=== PATIENT | female | born 1960 | race Caucasian/White ===

== ENCOUNTER 2016-12-19 22:25 | Inpatient (IN) | payer MEDICARE, MEDICAID ==
[~2016-12-19] VITALS: Ht 154.9 cm; Wt 97.5 kg
[~2016-12-19 22:25] MED LIST: CLON1 PO; ESCI20TA PO; TRAZ-147 PO
[2016-12-19] MEDS ORDERED: HYDR-309 PO (22:52)
[2016-12-19 22:56] LABS: GLUCOSE,POINT OF CARE 147 MG/DL (70-110)
[2016-12-19 23:10] LABS: BASOPHILS % (AUTO) 0.9 % (0.0-2.0); EOSINOPHILS % (AUTO) 1.3 % (1.0-6.0); HEMOGLOBIN 12.9 g/dL (12.0-16.0); LYMPHOCYTES # (AUTO) 3.7 K/uL (1.0-4.8); LYMPHOCYTES % (AUTO) 38.4 % (22.0-44.0); MEAN CORPUSCULAR HEMOGLOBIN 30.3 pg (26.0-34.0); MEAN CORPUSCULAR HGB CONC 33.1 G/dL (31.0-37.0); MEAN CORPUSCULAR VOLUME 92 fL (80-100); MONOCYTES # (AUTO) 0.4 K/uL (0.1-1.0); MONOCYTES % (AUTO) 4.5 % (2.0-9.0); NEUTROPHILS # (AUTO) 5.3 K/uL (1.8-7.7); NEUTROPHILS % (AUTO) 54.9 % (40.0-70.0); PLATELET COUNT (AUTO) 246 K/uL (150-450); RED BLOOD CELL COUNT(AUTO) 4.26 MIL/uL (4.00-5.20); RED CELL DISTRIBUTION WIDTH 13.8 % (11.5-14.5); WHITE BLOOD COUNT (AUTO) 9.7 K/uL (4.5-11.0)
[2016-12-19 23:23] LABS: ANION GAP 9 mmol/L (8-16); CALCIUM, TOTAL 9.3 mg/dL (8.8-10.5); CARBON DIOXIDE 29 mmol/L (22-29); CHLORIDE 98 mmol/L (98-107); CREATININE 0.85 mg/dL (0.60-1.30); GLOMERULAR FILTR. RATE CALC > 60 mL/min (>60); POTASSIUM 3.6 mmol/L (3.5-5.1); SODIUM SERUM 136 mmol/L (136-145); UREA NITROGEN, BLOOD 14 mg/dL (7-18)
[2016-12-19 23:29] LABS: ALANINE AMINOTRANSFERASE 25 U/L (12-78); ALBUMIN 3.8 g/dL (3.4-5.0); ASPARTATE AMINOTRANSFERASE 20 U/L (15-37); BILIRUBIN,TOTAL 0.5 mg/dL (0.1-1.0); TOTAL PROTEIN, SERUM 7.7 g/dL (6.4-8.2)
[2016-12-20] MEDS ORDERED: ESCITALOPRAM OXALATE 20 MG TABLET PO ONE (00:15)
[2016-12-20] MEDS ORDERED: TraZODone HCL 50 MG TABLET PO ONE (00:15)
[2016-12-20] MEDS ORDERED: OLANZapine 5 MG RAPDIS TABLET PO PRN (00:15)
[2016-12-20] MEDS ORDERED: ZOLPIDEM TARTRATE 10 MG TABLET PO PRN (00:15)
[2016-12-20 01:00] VITALS: BP 114/64
[2016-12-20] MEDS ORDERED: PNEUMOCOCCAL VACCINE POLYVALENT 0.5 ML VIAL [PPSV23] IM ONE (01:15)
[2016-12-20] MEDS ORDERED: INFLUENZA VIRUS VACCINE QVS 2016-17 (3YR+)/PF 60 MCG/0.5 ML SYRINGE IM ONE (01:15)
[2016-12-20] MEDS: LORazepam 2 MG TABLET PO PRN ×2 (01:22→15:19)
[2016-12-20 08:00] VITALS: BP 117/71
[2016-12-20] MEDS ORDERED: PROMETHAZINE HCL 25 MG TABLET PO PRN (10:00)
[2016-12-20] MEDS ORDERED: LOPERAMIDE HCL 2 MG CAPSULE PO PRN (10:00)
[2016-12-20] MEDS ORDERED: HydrOXYzine PAMOATE 50 MG CAPSULE PO PRN ×2 (10:00→18:00)
[2016-12-20] MEDS ORDERED: MAG HYDROX/AL HYDROX/SIMETH ES 30 ML SUSPENSION UDCUP PO PRN ×2 (10:00→18:00)
[2016-12-20] MEDS ORDERED: MAGNESIUM HYDROXIDE SUSPENSION 30 ML UDCUP PO PRN (10:00)
[2016-12-20] MEDS ORDERED: GuaiFENesin/D-METHORPHAN [SUGAR-FREE] 200-20MG/10 ML SYRUP UDCUP PO PRN (10:00)
[2016-12-20] MEDS ORDERED: TUBERCULIN, PURIFIED PROTEIN DERIVATIVE 5 TU/0.1 ML SYG ID ONE (10:00)
[2016-12-20] MEDS: ACETAMINOPHEN 325 MG TABLET PO PRN (15:19)
[2016-12-20 16:35] VITALS: BP 119/69
[2016-12-20] MEDS: THIAMINE HCL 100 MG TABLET PO SCH (16:58)
[2016-12-20] MEDS ORDERED: PROMETHAZINE HCL 25 MG/ML VIAL IM PRN (18:00)
[2016-12-20] MEDS ORDERED: CloNIDine HCL 0.1 MG TABLET PO PRN (18:00)
[2016-12-20] MEDS: ClonazePAM 0.5 MG TABLET PO SCH (20:39)
[2016-12-20] MEDS: TraZODone HCL 50 MG TABLET PO SCH (20:39)
[2016-12-20] MEDS ORDERED: TraZODone HCL 100 MG TABLET PO SCH (21:00)
[2016-12-20 22:00] VITALS: BP 121/68
[2016-12-20 22:27] VITALS: BP 121/74
[2016-12-20] MEDS: CloNIDine HCL 0.1 MG TABLET PO SCH (22:29)
[2016-12-20 23:00] VITALS: BP 112/62
[2016-12-21] VITALS (11 sets, daily range): BP systolic 105–131; BP diastolic 59–80
[2016-12-21] MEDS: ACETAMINOPHEN 325 MG TABLET PO PRN (05:58)
[2016-12-21] MEDS: CloNIDine HCL 0.1 MG TABLET PO SCH ×4 (06:09→22:20)
[2016-12-21] MEDS: FOLIC ACID 1 MG TABLET PO SCH (08:37)
[2016-12-21] MEDS: THIAMINE HCL 100 MG TABLET PO SCH ×2 (08:38→16:34)
[2016-12-21] MEDS: MULTIVITAMINS WITH MINERALS, THERAPEUTIC TABLET PO SCH (08:38)
[2016-12-21] MEDS ORDERED: ESCITALOPRAM OXALATE 20 MG TABLET PO SCH ×2 (09:00)
[2016-12-21] MEDS: IBUPROFEN 600 MG TABLET PO PRN (12:23)
[2016-12-21] MEDS: GABAPENTIN 300 MG CAPSULE PO SCH ×3 (13:35→20:47)
[2016-12-21] MEDS: ClonazePAM 0.5 MG TABLET PO SCH (20:47)
[2016-12-21] MEDS: TraZODone HCL 50 MG TABLET PO SCH (20:47)
[2016-12-22 06:00] VITALS: BP 119/74
[2016-12-22] MEDS: CloNIDine HCL 0.1 MG TABLET PO SCH ×4 (06:10→21:39)
[2016-12-22 06:11] VITALS: BP 119/74
[2016-12-22 06:31] LABS: HEMOGLOBIN A1C 6.2 % (4.5-6.2)
[2016-12-22 06:32] LABS: CHOL/HDL RATIO 3.4 (3.9-5.7)
[2016-12-22] MEDS: MULTIVITAMINS WITH MINERALS, THERAPEUTIC TABLET PO SCH (08:14)
[2016-12-22] MEDS: GABAPENTIN 300 MG CAPSULE PO SCH ×4 (08:14→20:06)
[2016-12-22] MEDS: FOLIC ACID 1 MG TABLET PO SCH (08:15)
[2016-12-22] MEDS: THIAMINE HCL 100 MG TABLET PO SCH ×2 (08:15→16:47)
[2016-12-22] MEDS ORDERED: DULoxetine HCL 20 MG CAPSULE PO SCH (09:00)
[2016-12-22 09:10] VITALS: BP 110/60
[2016-12-22 09:11] VITALS: BP 110/60
[2016-12-22] MEDS: IBUPROFEN 600 MG TABLET PO PRN (12:36)
[2016-12-22] MEDS ORDERED: DOCUSATE SODIUM 100 MG CAPSULE PO ONE (16:45)
[2016-12-22 17:15] VITALS: BP 109/75
[2016-12-22] MEDS: TraZODone HCL 50 MG TABLET PO SCH (20:07)
[2016-12-22] MEDS: ClonazePAM 0.5 MG TABLET PO SCH (20:07)
[2016-12-22 21:20] VITALS: BP 109/75
[2016-12-23 05:52] VITALS: BP 110/74
[2016-12-23 05:53] VITALS: BP 110/74
[2016-12-23] MEDS: CloNIDine HCL 0.1 MG TABLET PO SCH ×4 (05:59→21:00)
[2016-12-23] MEDS: LORazepam 2 MG TABLET PO PRN ×2 (05:59→12:40)
[2016-12-23 08:07] VITALS: BP 101/65
[2016-12-23] MEDS: FOLIC ACID 1 MG TABLET PO SCH (08:51)
[2016-12-23] MEDS: DOCUSATE SODIUM 100 MG CAPSULE PO SCH (08:51)
[2016-12-23] MEDS: THIAMINE HCL 100 MG TABLET PO SCH ×2 (08:51→16:21)
[2016-12-23] MEDS: MULTIVITAMINS WITH MINERALS, THERAPEUTIC TABLET PO SCH (08:52)
[2016-12-23] MEDS: GABAPENTIN 300 MG CAPSULE PO SCH ×4 (08:52→20:28)
[2016-12-23] MEDS: DULoxetine HCL 30 MG CAPSULE PO SCH (09:00)
[2016-12-23 12:35] VITALS: BP 112/73
[2016-12-23] MEDS: IBUPROFEN 600 MG TABLET PO PRN (12:40)
[2016-12-23 16:00] VITALS: BP 108/64
[2016-12-23] MEDS: ClonazePAM 0.5 MG TABLET PO SCH (20:28)
[2016-12-23] MEDS: TraZODone HCL 50 MG TABLET PO SCH (20:28)
[2016-12-24 00:29] VITALS: BP 114/77
[2016-12-24 00:31] VITALS: BP 144/77
[2016-12-24] MEDS: CloNIDine HCL 0.1 MG TABLET PO SCH ×4 (06:00→21:06)
[2016-12-24] MEDS: MULTIVITAMINS WITH MINERALS, THERAPEUTIC TABLET PO SCH (08:31)
[2016-12-24] MEDS: THIAMINE HCL 100 MG TABLET PO SCH ×2 (08:31→16:09)
[2016-12-24] MEDS: FOLIC ACID 1 MG TABLET PO SCH (08:31)
[2016-12-24] MEDS: DOCUSATE SODIUM 100 MG CAPSULE PO SCH (08:31)
[2016-12-24 08:35] VITALS: BP 122/66
[2016-12-24] MEDS: LORazepam 2 MG TABLET PO PRN ×2 (08:35→12:58)
[2016-12-24] MEDS: GABAPENTIN 300 MG CAPSULE PO SCH ×4 (08:35→20:46)
[2016-12-24] MEDS: IBUPROFEN 600 MG TABLET PO PRN (08:35)
[2016-12-24] MEDS: DULoxetine HCL 30 MG CAPSULE PO SCH (08:38)
[2016-12-24 12:58] VITALS: BP 130/83
[2016-12-24] MEDS: ACETAMINOPHEN 325 MG TABLET PO PRN (12:58)
[2016-12-24 16:40] VITALS: BP 148/90
[2016-12-24] MEDS: ClonazePAM 0.5 MG TABLET PO SCH (20:46)
[2016-12-24] MEDS: TraZODone HCL 50 MG TABLET PO SCH (20:46)
[2016-12-25 00:59] VITALS: BP 147/86
[2016-12-25] MEDS: CloNIDine HCL 0.1 MG TABLET PO SCH ×4 (06:00→21:06)
[2016-12-25] MEDS: GABAPENTIN 300 MG CAPSULE PO SCH ×4 (08:17→20:24)
[2016-12-25] MEDS: DOCUSATE SODIUM 100 MG CAPSULE PO SCH (08:17)
[2016-12-25] MEDS: MULTIVITAMINS WITH MINERALS, THERAPEUTIC TABLET PO SCH (08:18)
[2016-12-25] MEDS: FOLIC ACID 1 MG TABLET PO SCH (08:18)
[2016-12-25] MEDS: THIAMINE HCL 100 MG TABLET PO SCH ×2 (08:18→16:11)
[2016-12-25 08:20] VITALS: BP 107/67
[2016-12-25] MEDS: LORazepam 2 MG TABLET PO PRN ×2 (08:20→12:21)
[2016-12-25] MEDS: ACETAMINOPHEN 325 MG TABLET PO PRN (08:20)
[2016-12-25] MEDS: DULoxetine HCL 30 MG CAPSULE PO SCH (08:25)
[2016-12-25 12:20] VITALS: BP 117/62
[2016-12-25] MEDS: IBUPROFEN 600 MG TABLET PO PRN (12:21)
[2016-12-25 17:00] VITALS: BP 149/91
[2016-12-25] MEDS: TraZODone HCL 50 MG TABLET PO SCH (20:25)
[2016-12-25] MEDS: ClonazePAM 0.5 MG TABLET PO SCH (20:25)
[2016-12-26] MEDS: LORazepam 2 MG TABLET PO PRN (04:49)
[2016-12-26 05:42] VITALS: BP 145/76
[2016-12-26] MEDS: CloNIDine HCL 0.1 MG TABLET PO SCH (06:09)
[2016-12-26 08:05] VITALS: BP 109/73
[2016-12-26] MEDS: DOCUSATE SODIUM 100 MG CAPSULE PO SCH (09:00)
[2016-12-26] MEDS: DULoxetine HCL 30 MG CAPSULE PO SCH (09:00)
[2016-12-26] MEDS: MULTIVITAMINS WITH MINERALS, THERAPEUTIC TABLET PO SCH (09:24)
[2016-12-26] MEDS: GABAPENTIN 300 MG CAPSULE PO SCH (09:24)
[2016-12-26] MEDS: THIAMINE HCL 100 MG TABLET PO SCH (09:25)
[2016-12-26] MEDS: FOLIC ACID 1 MG TABLET PO SCH (09:25)
[2016-12-26] MEDS ORDERED: DULO30CA2 PO (09:39)
[2016-12-26] MEDS ORDERED: GABA-531 PO (09:41)
[2016-12-26] MEDS ORDERED: TRAZ-144 PO (09:42)
[2016-12-28] MEDS ORDERED: ESCI10TA PO (11:33)
== END 2016-12-26 11:30 | disposition home or self-care (01) | DRG 885 ==
LOC: EMS 22:27 → 3EX 12-20 00:10
PROVIDERS: ADMIT Psychiatry & Neurology Psychiatry; ATTEND Psychiatry & Neurology Psychiatry
DX: F33.2 Major depressive disorder, recurrent severe without psychotic features (principal); R45.851 Suicidal ideations; Z68.41 Body mass index [BMI] 40.0-44.9, adult; F11.23 Opioid dependence with withdrawal; I10 Essential (primary) hypertension; J44.9 Chronic obstructive pulmonary disease, unspecified; E78.5 Hyperlipidemia, unspecified; M19.90 Unspecified osteoarthritis, unspecified site; E66.9 Obesity, unspecified; K74.60 Unspecified cirrhosis of liver; G47.33 Obstructive sleep apnea (adult) (pediatric); B19.20 Unspecified viral hepatitis C without hepatic coma; G89.29 Other chronic pain; M54.9 Dorsalgia, unspecified; E73.9 Lactose intolerance, unspecified; Z28.21 Immunization not carried out because of patient refusal; Z79.899 Other long term (current) drug therapy; Z79.891 Long term (current) use of opiate analgesic; Z98.890 Other specified postprocedural states; Z91.19 Patient's noncompliance with other medical treatment and regimen; T40.2X5A Adverse effect of other opioids, initial encounter; Y93.89 Activity, other specified; Y92.89 Other specified places as the place of occurrence of the external cause; Y99.8 Other external cause status
CPT/HCPCS: 82962; 83036; 99285; G0480

== ENCOUNTER 2017-09-19 19:45 | Inpatient (IN) | payer MEDICARE, MEDICAID ==
[~2017-09-19] VITALS: Ht 154.9 cm; Wt 93.3 kg
[~2017-09-19 19:45] MED LIST changes: +ESCI10TA PO; -ESCI20TA PO; +GABA-531 PO; +TRAZ-144 PO; -TRAZ-147 PO
[2017-09-19] MEDS ORDERED: HYDR-3705 PO (19:55)
[2017-09-19 23:15] LABS: BASOPHILS % (AUTO) 0.7 % (0.0-2.0); EOSINOPHILS % (AUTO) 1.8 % (1.0-6.0); HEMATOCRIT 38.8 % (36-46); HEMOGLOBIN 13.3 g/dL (12.0-16.0); LYMPHOCYTES # (AUTO) 2.8 K/uL (1.0-4.8); LYMPHOCYTES % (AUTO) 35.3 % (22.0-44.0); MEAN CORPUSCULAR HEMOGLOBIN 30.9 pg (26.0-34.0); MEAN CORPUSCULAR HGB CONC 34.3 G/dL (31.0-37.0); MEAN CORPUSCULAR VOLUME 90 fL (80-100); MONOCYTES # (AUTO) 0.6 K/uL (0.1-1.0); MONOCYTES % (AUTO) 7.6 % (2.0-9.0); NEUTROPHILS # (AUTO) 4.4 K/uL (1.8-7.7); NEUTROPHILS % (AUTO) 54.6 % (40.0-70.0); PLATELET COUNT (AUTO) 243 K/uL (150-450); RED CELL DISTRIBUTION WIDTH 12.9 % (11.5-14.5)
[2017-09-19 23:19] LABS: ANION GAP 4 mmol/L (8-16); CALCIUM, TOTAL 8.9 mg/dL (8.8-10.5); CARBON DIOXIDE 29 mmol/L (22-29); CHLORIDE 101 mmol/L (98-107); CREATININE 0.88 mg/dL (0.60-1.30); GLOMERULAR FILTR. RATE CALC > 60 mL/min (>60); POTASSIUM 4.2 mmol/L (3.5-5.1); SODIUM SERUM 134 mmol/L (136-145); UREA NITROGEN, BLOOD 12 mg/dL (7-18)
[2017-09-19 23:25] LABS: ALANINE AMINOTRANSFERASE 26 U/L (12-78); ALBUMIN 3.7 g/dL (3.4-5.0); ASPARTATE AMINOTRANSFERASE 17 U/L (15-37); BILIRUBIN,TOTAL 0.6 mg/dL (0.1-1.0); TOTAL PROTEIN, SERUM 7.5 g/dL (6.4-8.2)
[2017-09-20] MEDS ORDERED: KETOROLAC TROMETHAMINE 60 MG/2 ML VIAL IM ONE (00:30)
[2017-09-20] MEDS ORDERED: LORazepam 1 MG TABLET PO ONE (00:30)
[2017-09-20] MEDS ORDERED: PROMETHAZINE HCL 25 MG/ML VIAL IM ONE (00:30)
[2017-09-20] MEDS: ZOLPIDEM TARTRATE 10 MG TABLET PO PRN (01:48)
[2017-09-20 03:08] VITALS: BP 125/76
[2017-09-20 03:31] VITALS: BP 125/76
[2017-09-20 07:21] LABS: HEMOGLOBIN A1C 6.2 % (4.5-6.2)
[2017-09-20 07:40] LABS: CHOL/HDL RATIO 2.5 (3.9-5.7)
[2017-09-20] MEDS ORDERED: ALBUTEROL SULFATE HFA 90 MCG/PUFF 8 GM INHALER IH PRN (07:45)
[2017-09-20] MEDS ORDERED: MAG HYDROX/AL HYDROX/SIMETH ES 30 ML SUSPENSION UDCUP PO PRN (07:45)
[2017-09-20] MEDS ORDERED: BENZOCAINE/MENTHOL LOZENGE MM PRN (07:45)
[2017-09-20] MEDS ORDERED: MAGNESIUM HYDROXIDE SUSPENSION 30 ML UDCUP PO PRN (07:45)
[2017-09-20] MEDS ORDERED: ONDANSETRON HCL 4 MG TABLET PO PRN (07:45)
[2017-09-20] MEDS ORDERED: PETROLATUM,WHITE 71 GM JELLY TP PRN (07:45)
[2017-09-20] MEDS ORDERED: ACETAMINOPHEN 325 MG TABLET PO PRN (07:45)
[2017-09-20] MEDS ORDERED: CloNIDine HCL 0.1 MG TABLET PO PRN (07:45)
[2017-09-20] MEDS ORDERED: BACITRACIN 28.4 GM OINTMENT TP PRN (07:45)
[2017-09-20] MEDS ORDERED: LOPERAMIDE HCL 2 MG CAPSULE PO PRN (07:45)
[2017-09-20 08:00] VITALS: BP 102/60
[2017-09-20] MEDS ORDERED: BENZOCAINE/MENTHOL LOZENGE [8 LOZENGES/PACKET] MM PRN (08:30)
[2017-09-20] MEDS: OMEPRAZOLE 20 MG CAPSULE PO SCH (09:33)
[2017-09-20] MEDS: DOCUSATE SODIUM 100 MG CAPSULE PO SCH (09:33)
[2017-09-20] MEDS: ESCITALOPRAM OXALATE 10 MG TABLET PO SCH (09:33)
[2017-09-20] MEDS: GABAPENTIN 400 MG CAPSULE PO SCH ×3 (09:33→21:01)
[2017-09-20] MEDS: OMEGA-3/DHA/EPA/FISH OIL 500 MG CAPSULE PO SCH (09:34)
[2017-09-20] MEDS: ClonazePAM 0.5 MG TABLET PO SCH ×2 (11:15→16:25)
[2017-09-20 17:13] VITALS: BP 135/62
[2017-09-20] MEDS: TraZODone HCL 100 MG TABLET PO SCH (21:01)
[2017-09-21] MEDS: ClonazePAM 0.5 MG TABLET PO SCH ×2 (09:35→17:22)
[2017-09-21] MEDS: OMEGA-3/DHA/EPA/FISH OIL 500 MG CAPSULE PO SCH (09:35)
[2017-09-21] MEDS: DOCUSATE SODIUM 100 MG CAPSULE PO SCH (09:35)
[2017-09-21] MEDS: OMEPRAZOLE 20 MG CAPSULE PO SCH (09:36)
[2017-09-21] MEDS: GABAPENTIN 400 MG CAPSULE PO SCH ×3 (09:36→21:46)
[2017-09-21] MEDS: ESCITALOPRAM OXALATE 10 MG TABLET PO SCH (09:37)
[2017-09-21 10:09] VITALS: BP 122/81
[2017-09-21] MEDS: IBUPROFEN 600 MG TABLET PO PRN ×2 (10:09→17:22)
[2017-09-21 11:15] VITALS: BP 126/79
[2017-09-21 17:20] VITALS: BP 101/60
[2017-09-21 18:20] VITALS: BP 112/70
[2017-09-21] MEDS ORDERED: IBUPROFEN 600 MG TABLET PO PRN (21:45)
[2017-09-21] MEDS: TraZODone HCL 100 MG TABLET PO SCH (21:46)
[2017-09-21] MEDS: ZOLPIDEM TARTRATE 10 MG TABLET PO PRN (22:02)
[2017-09-22] MEDS: DOCUSATE SODIUM 100 MG CAPSULE PO SCH (08:33)
[2017-09-22] MEDS: OMEGA-3/DHA/EPA/FISH OIL 500 MG CAPSULE PO SCH (08:33)
[2017-09-22] MEDS: ClonazePAM 0.5 MG TABLET PO SCH ×3 (08:33→16:50)
[2017-09-22] MEDS: ESCITALOPRAM OXALATE 10 MG TABLET PO SCH (08:34)
[2017-09-22] MEDS: OMEPRAZOLE 20 MG CAPSULE PO SCH (08:34)
[2017-09-22] MEDS: GABAPENTIN 400 MG CAPSULE PO SCH ×3 (08:34→21:33)
[2017-09-22 11:00] VITALS: BP 138/83
[2017-09-22] MEDS: IBUPROFEN 600 MG TABLET PO PRN (11:13)
[2017-09-22 12:15] VITALS: BP 133/83
[2017-09-22] MEDS: HydrOXYzine PAMOATE 50 MG CAPSULE PO PRN (13:05)
[2017-09-22] MEDS ORDERED: ClonazePAM 0.5 MG TABLET PO SCH (21:00)
[2017-09-22] MEDS: TraZODone HCL 100 MG TABLET PO SCH (21:33)
[2017-09-22 22:05] VITALS: BP 136/81
[2017-09-23] MEDS: IBUPROFEN 600 MG TABLET PO PRN ×2 (06:45→11:30)
[2017-09-23 06:46] VITALS: BP 158/88
[2017-09-23 07:45] VITALS: BP 117/84
[2017-09-23 08:22] VITALS: BP 117/84
[2017-09-23] MEDS: ESCITALOPRAM OXALATE 10 MG TABLET PO SCH (08:55)
[2017-09-23] MEDS: DOCUSATE SODIUM 100 MG CAPSULE PO SCH (08:55)
[2017-09-23] MEDS: GABAPENTIN 400 MG CAPSULE PO SCH ×3 (08:55→20:17)
[2017-09-23] MEDS: ClonazePAM 0.5 MG TABLET PO SCH ×2 (08:55→20:17)
[2017-09-23] MEDS: OMEGA-3/DHA/EPA/FISH OIL 500 MG CAPSULE PO SCH (08:55)
[2017-09-23] MEDS: OMEPRAZOLE 20 MG CAPSULE PO SCH (08:55)
[2017-09-23] MEDS: HydrOXYzine PAMOATE 50 MG CAPSULE PO PRN (11:29)
[2017-09-23 11:30] VITALS: BP 120/80
[2017-09-23 12:30] VITALS: BP 113/71
[2017-09-23 16:59] VITALS: BP 135/85
[2017-09-23] MEDS ORDERED: GABA-529 PO (18:43)
[2017-09-23] MEDS ORDERED: DiphenhydrAMINE HCL 25 MG CAPSULE ONE (19:01)
[2017-09-23] MEDS: DiphenhydrAMINE HCL 25 MG CAPSULE PO SCH (20:16)
[2017-09-23] MEDS: TraZODone HCL 100 MG TABLET PO SCH (20:16)
[2017-09-23] MEDS: ZOLPIDEM TARTRATE 10 MG TABLET PO PRN (21:02)
[2017-09-24 08:15] VITALS: BP 101/75
[2017-09-24] MEDS: OMEGA-3/DHA/EPA/FISH OIL 500 MG CAPSULE PO SCH (08:31)
[2017-09-24] MEDS: GABAPENTIN 400 MG CAPSULE PO SCH ×3 (08:31→20:15)
[2017-09-24] MEDS: DOCUSATE SODIUM 100 MG CAPSULE PO SCH (08:31)
[2017-09-24] MEDS: OMEPRAZOLE 20 MG CAPSULE PO SCH (08:31)
[2017-09-24] MEDS: ESCITALOPRAM OXALATE 10 MG TABLET PO SCH (08:32)
[2017-09-24] MEDS: ClonazePAM 0.5 MG TABLET PO SCH (08:32)
[2017-09-24 13:26] VITALS: BP 111/69
[2017-09-24] MEDS: IBUPROFEN 600 MG TABLET PO PRN (13:26)
[2017-09-24] MEDS: HydrOXYzine PAMOATE 50 MG CAPSULE PO PRN (15:58)
[2017-09-24 17:23] VITALS: BP 113/66
[2017-09-24] MEDS: DiphenhydrAMINE HCL 25 MG CAPSULE PO SCH (20:14)
[2017-09-24] MEDS: TraZODone HCL 100 MG TABLET PO SCH (20:15)
[2017-09-24] MEDS: ZOLPIDEM TARTRATE 10 MG TABLET PO PRN (21:40)
[2017-09-25] MEDS ORDERED: ESCI10TA PO (00:18)
[2017-09-25] MEDS ORDERED: HYD25 PO (00:18)
[2017-09-25] MEDS ORDERED: GABA-533 PO (00:19)
[2017-09-25] MEDS ORDERED: TRAZ-147 PO (00:19)
[2017-09-25] MEDS: DOCUSATE SODIUM 100 MG CAPSULE PO SCH (08:28)
[2017-09-25] MEDS: OMEGA-3/DHA/EPA/FISH OIL 500 MG CAPSULE PO SCH (08:28)
[2017-09-25] MEDS: ESCITALOPRAM OXALATE 10 MG TABLET PO SCH (08:28)
[2017-09-25] MEDS: OMEPRAZOLE 20 MG CAPSULE PO SCH (08:28)
[2017-09-25] MEDS: GABAPENTIN 400 MG CAPSULE PO SCH (08:28)
[2017-09-25 12:48] VITALS: BP 122/90
== END 2017-09-25 09:00 | disposition home or self-care (01) | DRG 885 ==
LOC: EMS 19:49 → 3EX 09-20 01:21
PROVIDERS: ADMIT Psychiatry & Neurology Psychiatry; ATTEND Psychiatry & Neurology Psychiatry
DX: F33.2 Major depressive disorder, recurrent severe without psychotic features (principal); E87.1 Hypo-osmolality and hyponatremia; R45.851 Suicidal ideations; K74.60 Unspecified cirrhosis of liver; E66.9 Obesity, unspecified; E78.5 Hyperlipidemia, unspecified; F41.1 Generalized anxiety disorder; G47.00 Insomnia, unspecified; G47.33 Obstructive sleep apnea (adult) (pediatric); G89.29 Other chronic pain; I10 Essential (primary) hypertension; J44.9 Chronic obstructive pulmonary disease, unspecified; K59.00 Constipation, unspecified; M19.90 Unspecified osteoarthritis, unspecified site; F17.200 Nicotine dependence, unspecified, uncomplicated; R51 Headache; M54.9 Dorsalgia, unspecified; Z59.0 Homelessness; Z79.899 Other long term (current) drug therapy; Z91.19 Patient's noncompliance with other medical treatment and regimen; Z71.6 Tobacco abuse counseling; Z88.8 Allergy status to other drugs, medicaments and biological substances; Z68.38 Body mass index [BMI] 38.0-38.9, adult
CPT/HCPCS: 83036; 84295; 84436; 96372; 99285; G0480; J1885; J2550

== ENCOUNTER 2018-06-22 18:37 | Inpatient (IN) | payer MEDICARE, MEDICAID ==
[~2018-06-22] VITALS: Ht 152.4 cm; Wt 91.2 kg
[~2018-06-22 18:37] MED LIST changes: -CLON1 PO; -GABA-531 PO; +GABA-533 PO; +HYD25 PO; -TRAZ-144 PO; +TRAZ-220 PO
[2018-06-22] MEDS ORDERED: CLON.5 PO (18:48)
[2018-06-22 20:55] LABS: BASOPHILS % (AUTO) 0.8 % (0.0-2.0); EOSINOPHILS % (AUTO) 1.7 % (1.0-6.0); HEMATOCRIT 40.2 % (36-46); HEMOGLOBIN 13.6 g/dL (12.0-16.0); LYMPHOCYTES # (AUTO) 3.1 K/uL (1.0-4.8); LYMPHOCYTES % (AUTO) 38.4 % (22.0-44.0); MEAN CORPUSCULAR HEMOGLOBIN 30.4 pg (26.0-34.0); MEAN CORPUSCULAR HGB CONC 33.8 G/dL (31.0-37.0); MEAN CORPUSCULAR VOLUME 90 fL (80-100); MONOCYTES # (AUTO) 0.4 K/uL (0.1-1.0); NEUTROPHILS # (AUTO) 4.3 K/uL (1.8-7.7); NEUTROPHILS % (AUTO) 54.1 % (40.0-70.0); PLATELET COUNT (AUTO) 283 K/uL (150-450); RED BLOOD CELL COUNT(AUTO) 4.46 MIL/uL (4.00-5.20); RED CELL DISTRIBUTION WIDTH 13.5 % (11.5-14.5)
[2018-06-22 21:11] LABS: ANION GAP 12 mmol/L (8-16); CALCIUM, TOTAL 8.8 mg/dL (8.8-10.5); CARBON DIOXIDE 25 mmol/L (22-29); CHLORIDE 102 mmol/L (98-107); CREATININE 0.84 mg/dL (0.60-1.30); GLOMERULAR FILTR. RATE CALC > 60 mL/min (>60); GLUCOSE,RANDOM 192 mg/dL (70-110); POTASSIUM 3.3 mmol/L (3.5-5.1); SODIUM SERUM 139 mmol/L (136-145); UREA NITROGEN, BLOOD 17 mg/dL (7-18)
[2018-06-22 21:17] LABS: ALANINE AMINOTRANSFERASE 25 U/L (12-78); ALBUMIN 3.8 g/dL (3.4-5.0); ALKALINE PHOSPHATASE 78 U/L (46-116); ASPARTATE AMINOTRANSFERASE 24 U/L (15-37); BILIRUBIN,TOTAL 0.9 mg/dL (0.1-1.0); TOTAL PROTEIN, SERUM 7.7 g/dL (6.4-8.2)
[2018-06-23] MEDS ORDERED: POTASSIUM CHLORIDE 10 MEQ ER TABLET PO ONE (00:15)
[2018-06-23] MEDS ORDERED: HALOPERIDOL 5 MG TABLET PO PRN (01:30)
[2018-06-23] MEDS ORDERED: LORazepam 2 MG TABLET PO PRN (01:30)
[2018-06-23] MEDS: ZOLPIDEM TARTRATE 10 MG TABLET PO PRN ×2 (02:06→02:29)
[2018-06-23 03:13] VITALS: BP 148/77
[2018-06-23 05:39] LABS: GLUCOMETER DEV NAME(LOC) 3EI C; GLUCOSE,POINT OF CARE 126 MG/DL (70-110)
[2018-06-23 08:30] VITALS: BP 122/54
[2018-06-23] MEDS ORDERED: LOPERAMIDE HCL 2 MG CAPSULE PO PRN (10:30)
[2018-06-23] MEDS ORDERED: PROMETHAZINE HCL 25 MG TABLET PO PRN (10:30)
[2018-06-23] MEDS ORDERED: MAG HYDROX/AL HYDROX/SIMETH ES 30 ML SUSPENSION UDCUP PO PRN (10:30)
[2018-06-23] MEDS ORDERED: MAGNESIUM HYDROXIDE SUSPENSION 30 ML UDCUP PO PRN (10:30)
[2018-06-23] MEDS ORDERED: ESCITALOPRAM OXALATE 10 MG TABLET PO SCH (14:00)
[2018-06-23] MEDS: ClonazePAM 0.5 MG TABLET PO SCH (16:55)
[2018-06-23] MEDS: GABAPENTIN 400 MG CAPSULE PO SCH (16:55)
[2018-06-23] MEDS ORDERED: GABAPENTIN 400 MG CAPSULE PO SCH (17:00)
[2018-06-23] MEDS: DOCUSATE SODIUM 250 MG CAPSULE PO SCH (17:03)
[2018-06-23 18:57] VITALS: BP 116/70
[2018-06-23 19:15] LABS: AMPHET/METH SCREEN,URINE NEGATIVE (NEGATIVE); BARBITURATE SCREEN, URINE NEGATIVE (NEGATIVE); BENZODIAZEPINES SCREEN,URINE NEGATIVE (NEGATIVE); CANNABINOID SCREEN,URINE NEGATIVE (NEGATIVE); COCAINE SCREEN,URINE NEGATIVE (NEGATIVE); METHADONE SCREEN, URINE NEGATIVE (NEGATIVE); OPIATE SCREEN,URINE NEGATIVE (NEGATIVE); PHENCYCLIDINE SCREEN,URINE NEGATIVE (NEGATIVE)
[2018-06-23 19:45] LABS: APPEARANCE,URINE CLEAR (CLEAR); BILIRUBIN,URINE NEGATIVE (NEGATIVE); GLUCOSE, URINE (UA) NEGATIVE (NEGATIVE); KETONES,URINE NEGATIVE (NEGATIVE); LEUKOCYTE ESTERASE ,URINE NEGATIVE (NEGATIVE); NITRATE,URINE NEGATIVE (NEGATIVE); OCCULT BLOOD,URINE TRACE (NEGATIVE); PROTEIN,URINE NEGATIVE (NEGATIVE)
[2018-06-23 20:27] LABS: BACTERIA,URINE Few /HPF (None Seen); RBC,URINE 0-2 /HPF (0-2); SQUAMOUS EPITHELIAL CELL,UR Few /LPF (None Seen); WBC,URINE 0-2 /HPF (0-5)
[2018-06-23] MEDS: TraZODone HCL 100 MG TABLET PO SCH (20:32)
[2018-06-24 08:30] LABS: CHOL/HDL RATIO 3.8 (3.9-5.7)
[2018-06-24] MEDS: ACETAMINOPHEN 325 MG TABLET PO PRN (08:37)
[2018-06-24] MEDS: ESCITALOPRAM OXALATE 10 MG TABLET PO SCH (08:37)
[2018-06-24 08:38] VITALS: BP 111/65
[2018-06-24] MEDS: ClonazePAM 0.5 MG TABLET PO SCH ×2 (08:38→16:58)
[2018-06-24] MEDS: DOCUSATE SODIUM 250 MG CAPSULE PO SCH ×2 (08:38→16:59)
[2018-06-24] MEDS: GABAPENTIN 400 MG CAPSULE PO SCH ×2 (08:39→16:59)
[2018-06-24] MEDS: IBUPROFEN 600 MG TABLET PO PRN (12:43)
[2018-06-24 16:44] VITALS: BP 121/81
[2018-06-24] MEDS: TraZODone HCL 100 MG TABLET PO SCH (20:27)
[2018-06-25 08:30] VITALS: BP 120/73
[2018-06-25] MEDS: DOCUSATE SODIUM 250 MG CAPSULE PO SCH ×2 (08:31→16:12)
[2018-06-25] MEDS: ESCITALOPRAM OXALATE 10 MG TABLET PO SCH (08:31)
[2018-06-25] MEDS: ClonazePAM 0.5 MG TABLET PO SCH ×2 (08:31→16:12)
[2018-06-25] MEDS: GABAPENTIN 400 MG CAPSULE PO SCH ×2 (08:31→16:12)
[2018-06-25] MEDS: ACETAMINOPHEN 325 MG TABLET PO PRN (08:37)
[2018-06-25] MEDS: OMEGA-3/DHA/EPA/FISH OIL 1,000 MG CAPSULE PO SCH (09:23)
[2018-06-25 09:40] VITALS: BP 116/76
[2018-06-25] MEDS: IBUPROFEN 600 MG TABLET PO PRN (16:18)
[2018-06-25 16:19] VITALS: BP 103/69
[2018-06-25 17:19] VITALS: BP 113/75
[2018-06-25] MEDS: TraZODone HCL 100 MG TABLET PO SCH (20:30)
[2018-06-26 08:48] VITALS: BP 111/76
[2018-06-26] MEDS: DOCUSATE SODIUM 250 MG CAPSULE PO SCH ×2 (09:16→16:42)
[2018-06-26] MEDS: GABAPENTIN 400 MG CAPSULE PO SCH ×2 (09:16→16:42)
[2018-06-26] MEDS: ESCITALOPRAM OXALATE 10 MG TABLET PO SCH (09:16)
[2018-06-26] MEDS: OMEGA-3/DHA/EPA/FISH OIL 1,000 MG CAPSULE PO SCH (09:17)
[2018-06-26 14:12] VITALS: BP 121/76
[2018-06-26] MEDS: IBUPROFEN 600 MG TABLET PO PRN ×2 (14:12→19:54)
[2018-06-26] MEDS ORDERED: ClonazePAM 0.5 MG TABLET PO SCH (15:00)
[2018-06-26] MEDS ORDERED: BENZOCAINE/MENTHOL LOZENGE PO PRN (18:30)
[2018-06-26 19:54] VITALS: BP 104/73
[2018-06-26] MEDS: TraZODone HCL 100 MG TABLET PO SCH (20:28)
[2018-06-26] MEDS: ClonazePAM 0.5 MG TABLET PO SCH (20:28)
[2018-06-27 08:05] VITALS: BP 115/76
[2018-06-27] MEDS: DOCUSATE SODIUM 250 MG CAPSULE PO SCH ×2 (08:53→16:05)
[2018-06-27] MEDS: OMEGA-3/DHA/EPA/FISH OIL 1,000 MG CAPSULE PO SCH (08:53)
[2018-06-27] MEDS: ESCITALOPRAM OXALATE 10 MG TABLET PO SCH (08:53)
[2018-06-27] MEDS: GABAPENTIN 400 MG CAPSULE PO SCH ×2 (08:53→16:05)
[2018-06-27] MEDS: IBUPROFEN 600 MG TABLET PO PRN (08:55)
[2018-06-27] MEDS ORDERED: LORATADINE 10 MG TABLET PO PRN (11:15)
[2018-06-27] MEDS: ClonazePAM 0.5 MG TABLET PO SCH (12:56)
[2018-06-27] MEDS ORDERED: GABA-533 PO (13:07)
[2018-06-27] MEDS ORDERED: CLON.5 PO (13:07)
[2018-06-27] MEDS ORDERED: TRAZ-220 PO (13:07)
[2018-06-27] MEDS ORDERED: ESCI10TA54 PO (13:07)
[2018-06-27] MEDS ORDERED: OMEG-135 PO (13:07)
[2018-06-27] MEDS ORDERED: DOCU50CA15 PO (14:59)
== END 2018-06-27 17:20 | DRG 885 ==
LOC: EMS 18:38 → 3EX 06-23 01:30
PROVIDERS: ATTEND Psychiatry & Neurology Psychiatry
DX: F33.2 Major depressive disorder, recurrent severe without psychotic features (principal); R45.851 Suicidal ideations; J44.9 Chronic obstructive pulmonary disease, unspecified; I10 Essential (primary) hypertension; K74.60 Unspecified cirrhosis of liver; G47.33 Obstructive sleep apnea (adult) (pediatric); E78.5 Hyperlipidemia, unspecified; E11.65 Type 2 diabetes mellitus with hyperglycemia; K59.00 Constipation, unspecified; K21.9 Gastro-esophageal reflux disease without esophagitis; E66.9 Obesity, unspecified; E87.6 Hypokalemia; F17.200 Nicotine dependence, unspecified, uncomplicated; Z91.011 Allergy to milk products; Z59.0 Homelessness
CPT/HCPCS: 83036; 84132; 99285; G0480

== ENCOUNTER 2018-10-03 15:20 | Inpatient (IN) | payer MEDICARE, MEDICAID ==
[~2018-10-03] VITALS: Ht 165.1 cm; Wt 94.5 kg
[~2018-10-03 15:20] MED LIST changes: +CLON.5 PO; +DOCU50CA15 PO; -ESCI10TA PO; +ESCI10TA54 PO; -HYD25 PO; +OMEG-135 PO
[2018-10-03] MEDS ORDERED: ZOLPIDEM TARTRATE 10 MG TABLET PO PRN (16:30)
[2018-10-03] MEDS ORDERED: QUEtiapine FUMARATE 100 MG TABLET PO PRN (16:30)
[2018-10-03 16:55] VITALS: BP 113/79
[2018-10-03] MEDS: GABAPENTIN 400 MG CAPSULE PO SCH (19:15)
[2018-10-03 19:30] VITALS: BP 138/88
[2018-10-03] MEDS ORDERED: BENZOCAINE/MENTHOL LOZENGE MM PRN (20:30)
[2018-10-03] MEDS ORDERED: DEXTROSE 50%-WATER 25 GM/50 ML SYRINGE IVP PRN (20:30)
[2018-10-03] MEDS ORDERED: DOCUSATE SODIUM 100 MG CAPSULE PO PRN (20:30)
[2018-10-03] MEDS ORDERED: PETROLATUM,WHITE 71 GM JELLY TP PRN (20:30)
[2018-10-03] MEDS ORDERED: CloNIDine HCL 0.1 MG TABLET PO PRN (20:30)
[2018-10-03] MEDS ORDERED: ACETAMINOPHEN 325 MG TABLET PO PRN (20:30)
[2018-10-03] MEDS ORDERED: ALBUTEROL SULFATE HFA 90 MCG/PUFF 8 GM INHALER IH PRN (20:30)
[2018-10-03] MEDS ORDERED: MAGNESIUM HYDROXIDE SUSPENSION 30 ML UDCUP PO PRN (20:30)
[2018-10-03] MEDS ORDERED: LOPERAMIDE HCL 2 MG CAPSULE PO PRN (20:30)
[2018-10-03] MEDS ORDERED: OMEPRAZOLE 20 MG CAPSULE PO PRN (20:30)
[2018-10-03] MEDS ORDERED: MAG HYDROX/AL HYDROX/SIMETH ES 30 ML SUSPENSION UDCUP PO PRN (20:30)
[2018-10-03] MEDS ORDERED: BACITRACIN 28.4 GM OINTMENT TP PRN (20:30)
[2018-10-03] MEDS ORDERED: ONDANSETRON HCL 4 MG TABLET PO PRN (20:30)
[2018-10-03] MEDS ORDERED: INSULIN LISPRO 100 UNITS/ML SQ PRN (20:30)
[2018-10-03] MEDS ORDERED: METHYL SALICYLATE/MENTHOL 85 GM CREAM TP PRN (20:45)
[2018-10-03] MEDS ORDERED: ClonazePAM 0.5 MG TABLET PO SCH (21:00)
[2018-10-03] MEDS: TraZODone HCL 100 MG TABLET PO SCH (21:08)
[2018-10-03 22:03] LABS: GLUCOMETER DEV NAME(LOC) 3EI C; GLUCOSE,POINT OF CARE 104 MG/DL (70-110)
[2018-10-04 05:44] LABS: GLUCOMETER DEV NAME(LOC) 3EI C; GLUCOSE,POINT OF CARE 108 MG/DL (70-110)
[2018-10-04 06:46] LABS: BASOPHILS % (AUTO) 0.9 % (0.0-2.0); EOSINOPHILS % (AUTO) 1.6 % (1.0-6.0); HEMATOCRIT 40.2 % (36-46); HEMOGLOBIN 13.5 g/dL (12.0-16.0); LYMPHOCYTES # (AUTO) 2.1 K/uL (1.0-4.8); LYMPHOCYTES % (AUTO) 30.2 % (22.0-44.0); MEAN CORPUSCULAR HEMOGLOBIN 30.3 pg (26.0-34.0); MEAN CORPUSCULAR HGB CONC 33.5 G/dL (31.0-37.0); MEAN CORPUSCULAR VOLUME 91 fL (80-100); MONOCYTES # (AUTO) 0.5 K/uL (0.1-1.0); MONOCYTES % (AUTO) 7.8 % (2.0-9.0); NEUTROPHILS # (AUTO) 4.1 K/uL (1.8-7.7); NEUTROPHILS % (AUTO) 59.5 % (40.0-70.0); PLATELET COUNT (AUTO) 257 K/uL (150-450); RED BLOOD CELL COUNT(AUTO) 4.44 MIL/uL (4.00-5.20); RED CELL DISTRIBUTION WIDTH 13.3 % (11.5-14.5)
[2018-10-04 07:24] LABS: HEMOGLOBIN A1C 6.2 % (4.5-6.2)
[2018-10-04 07:34] LABS: ALANINE AMINOTRANSFERASE 167 U/L (12-78); ALBUMIN 3.3 g/dL (3.4-5.0); ALKALINE PHOSPHATASE 81 U/L (46-116); ANION GAP 6 mmol/L (8-16); ASPARTATE AMINOTRANSFERASE 205 U/L (15-37); BILIRUBIN,TOTAL 0.9 mg/dL (0.1-1.0); CALCIUM, TOTAL 8.6 mg/dL (8.8-10.5); CARBON DIOXIDE 32 mmol/L (22-29); CHLORIDE 103 mmol/L (98-107); CHOL/HDL RATIO 2.5 (3.9-5.7); CHOLESTEROL 188 mg/dL (131-200); CREATININE 0.83 mg/dL (0.60-1.30); GLOMERULAR FILTR. RATE CALC > 60 mL/min (>60); GLUCOSE,RANDOM 105 mg/dL (70-110); HDL CHOLESTEROL 74 mg/dL (40-60); LDL CHOL (CALC.) 87 mg/dL (0-130); POTASSIUM 3.9 mmol/L (3.5-5.1); SODIUM SERUM 141 mmol/L (136-145); THYROID STIMULATING HORMONE 1.04 uIU/mL (0.36-3.74); TOTAL PROTEIN, SERUM 6.9 g/dL (6.4-8.2); TRIGLYCERIDES 137 mg/dL (15-150); UREA NITROGEN, BLOOD 11 mg/dL (7-18)
[2018-10-04] MEDS: GABAPENTIN 400 MG CAPSULE PO SCH ×2 (08:44→16:37)
[2018-10-04] MEDS: OMEGA-3/DHA/EPA/FISH OIL 1,000 MG CAPSULE PO SCH (08:44)
[2018-10-04 09:39] VITALS: BP 100/66
[2018-10-04] MEDS ORDERED: INSULIN LISPRO 100 UNITS/ML SQ PRN (10:30)
[2018-10-04 11:30] VITALS: BP 123/76
[2018-10-04 11:33] LABS: GLUCOMETER DEV NAME(LOC) 3EI C; GLUCOSE,POINT OF CARE 104 MG/DL (70-110)
[2018-10-04] MEDS: IBUPROFEN 600 MG TABLET PO PRN ×2 (11:35→18:10)
[2018-10-04 11:40] VITALS: BP 113/62
[2018-10-04 16:30] VITALS: BP 103/55
[2018-10-04 16:43] LABS: GLUCOMETER DEV NAME(LOC) 3EI C; GLUCOSE,POINT OF CARE 99 MG/DL (70-110)
[2018-10-04 18:00] VITALS: BP 130/74
[2018-10-04] MEDS: TraZODone HCL 100 MG TABLET PO SCH (20:06)
[2018-10-04] MEDS: ClonazePAM 0.5 MG TABLET PO SCH (20:06)
[2018-10-04 20:53] LABS: GLUCOMETER DEV NAME(LOC) 3EI C; GLUCOSE,POINT OF CARE 92 MG/DL (70-110)
[2018-10-05 05:44] LABS: GLUCOMETER DEV NAME(LOC) 3EX 1; GLUCOSE,POINT OF CARE 108 MG/DL (70-110)
[2018-10-05 07:32] LABS: ALANINE AMINOTRANSFERASE 109 U/L (12-78); ALBUMIN 3.3 g/dL (3.4-5.0); ALKALINE PHOSPHATASE 87 U/L (46-116); ANION GAP 7 mmol/L (8-16); ASPARTATE AMINOTRANSFERASE 59 U/L (15-37); BILIRUBIN,TOTAL 0.8 mg/dL (0.1-1.0); CARBON DIOXIDE 31 mmol/L (22-29); CHLORIDE 103 mmol/L (98-107); CREATININE 0.77 mg/dL (0.60-1.30); GLOMERULAR FILTR. RATE CALC > 60 mL/min (>60); GLUCOSE,RANDOM 108 mg/dL (70-110); POTASSIUM 4.1 mmol/L (3.5-5.1); SODIUM SERUM 141 mmol/L (136-145); TOTAL PROTEIN, SERUM 7.2 g/dL (6.4-8.2); UREA NITROGEN, BLOOD 13 mg/dL (7-18)
[2018-10-05 07:42] LABS: CALCIUM, TOTAL 8.8 mg/dL (8.8-10.5)
[2018-10-05] MEDS: OMEGA-3/DHA/EPA/FISH OIL 1,000 MG CAPSULE PO SCH (08:30)
[2018-10-05] MEDS: ESCITALOPRAM OXALATE 10 MG TABLET PO SCH (08:30)
[2018-10-05] MEDS: GABAPENTIN 400 MG CAPSULE PO SCH ×2 (08:30→16:55)
[2018-10-05 08:37] VITALS: BP 119/84
[2018-10-05] MEDS: IBUPROFEN 600 MG TABLET PO PRN (10:40)
[2018-10-05 10:53] LABS: GLUCOMETER DEV NAME(LOC) 3EI C; GLUCOSE,POINT OF CARE 90 MG/DL (70-110)
[2018-10-05] MEDS: ClonazePAM 0.5 MG TABLET PO SCH ×2 (12:50→20:12)
[2018-10-05 16:54] VITALS: BP 119/72
[2018-10-05 17:08] LABS: GLUCOMETER DEV NAME(LOC) 3EI C; GLUCOSE,POINT OF CARE 91 MG/DL (70-110)
[2018-10-05] MEDS: TraZODone HCL 100 MG TABLET PO SCH (20:12)
[2018-10-05 20:38] LABS: GLUCOMETER DEV NAME(LOC) 3EI C; GLUCOSE,POINT OF CARE 100 MG/DL (70-110)
[2018-10-06 05:54] LABS: GLUCOMETER DEV NAME(LOC) 3EX 1; GLUCOSE,POINT OF CARE 120 MG/DL (70-110)
[2018-10-06] MEDS: OMEGA-3/DHA/EPA/FISH OIL 1,000 MG CAPSULE PO SCH (08:34)
[2018-10-06] MEDS: GABAPENTIN 400 MG CAPSULE PO SCH ×2 (08:34→16:40)
[2018-10-06] MEDS: ESCITALOPRAM OXALATE 10 MG TABLET PO SCH (08:34)
[2018-10-06 08:58] VITALS: BP 105/71
[2018-10-06] MEDS: IBUPROFEN 600 MG TABLET PO PRN ×2 (08:58→17:23)
[2018-10-06 09:58] VITALS: BP 126/82
[2018-10-06] MEDS: ClonazePAM 0.5 MG TABLET PO SCH ×2 (13:01→20:30)
[2018-10-06 16:23] LABS: GLUCOMETER DEV NAME(LOC) 3EC; GLUCOSE,POINT OF CARE 117 MG/DL (70-110)
[2018-10-06 16:58] LABS: GLUCOMETER DEV NAME(LOC) 3EI C; GLUCOSE,POINT OF CARE 99 MG/DL (70-110)
[2018-10-06 17:25] VITALS: BP 131/86
[2018-10-06] MEDS ORDERED: LORATADINE 10 MG TABLET PO PRN (19:45)
[2018-10-06] MEDS: TraZODone HCL 100 MG TABLET PO SCH (20:30)
[2018-10-06 21:38] LABS: GLUCOMETER DEV NAME(LOC) 3EI C; GLUCOSE,POINT OF CARE 98 MG/DL (70-110)
[2018-10-07] MEDS: OMEGA-3/DHA/EPA/FISH OIL 1,000 MG CAPSULE PO SCH (08:19)
[2018-10-07] MEDS: ESCITALOPRAM OXALATE 10 MG TABLET PO SCH (08:19)
[2018-10-07] MEDS: GABAPENTIN 400 MG CAPSULE PO SCH ×2 (08:19→16:43)
[2018-10-07 09:37] VITALS: BP 123/82
[2018-10-07] MEDS: ClonazePAM 0.5 MG TABLET PO SCH ×2 (12:43→20:05)
[2018-10-07 16:45] VITALS: BP 106/70
[2018-10-07] MEDS: IBUPROFEN 600 MG TABLET PO PRN (16:45)
[2018-10-07 17:09] LABS: GLUCOMETER DEV NAME(LOC) 3EI C; GLUCOSE,POINT OF CARE 91 MG/DL (70-110)
[2018-10-07] MEDS: TraZODone HCL 100 MG TABLET PO SCH (20:05)
[2018-10-08 08:15] VITALS: BP 114/76
[2018-10-08] MEDS ORDERED: ESCI10TA PO (08:37)
[2018-10-08] MEDS ORDERED: TRAZ-220 PO (08:38)
[2018-10-08] MEDS ORDERED: GABA-533 PO (08:38)
[2018-10-08] MEDS ORDERED: OMEG-135 PO (08:40)
[2018-10-08] MEDS: OMEGA-3/DHA/EPA/FISH OIL 1,000 MG CAPSULE PO SCH (08:51)
[2018-10-08] MEDS: GABAPENTIN 400 MG CAPSULE PO SCH (08:51)
[2018-10-08] MEDS: ESCITALOPRAM OXALATE 10 MG TABLET PO SCH (08:51)
== END 2018-10-08 11:40 | disposition home or self-care (01) | DRG 885 ==
LOC: 3EX 16:48
PROVIDERS: ADMIT Psychiatry & Neurology Psychiatry; ATTEND Psychiatry & Neurology Psychiatry
DX: F33.2 Major depressive disorder, recurrent severe without psychotic features (principal); F23 Brief psychotic disorder; F17.200 Nicotine dependence, unspecified, uncomplicated; E78.5 Hyperlipidemia, unspecified; E66.9 Obesity, unspecified; J44.9 Chronic obstructive pulmonary disease, unspecified; K21.9 Gastro-esophageal reflux disease without esophagitis; M19.90 Unspecified osteoarthritis, unspecified site; G47.00 Insomnia, unspecified; F41.9 Anxiety disorder, unspecified; E11.9 Type 2 diabetes mellitus without complications; R74.0 Nonspecific elevation of levels of transaminase and lactic acid dehydrogenase [LDH]; Z98.891 History of uterine scar from previous surgery; Z91.14 Patient's other noncompliance with medication regimen; Z91.19 Patient's noncompliance with other medical treatment and regimen; Z91.011 Allergy to milk products; Z79.51 Long term (current) use of inhaled steroids; Z79.899 Other long term (current) drug therapy; Z68.34 Body mass index [BMI] 34.0-34.9, adult
CPT/HCPCS: 80074; 83036; 84439; 84443; G0378

== ENCOUNTER 2019-01-13 17:07 | Inpatient (IN) | payer MEDICARE, MEDICAID ==
[~2019-01-13] VITALS: Ht 152.4 cm; Wt 97.6 kg
[~2019-01-13 17:07] MED LIST changes: -DOCU50CA15 PO; +ESCI10TA PO; -ESCI10TA54 PO
[2019-01-13] MEDS ORDERED: ZOLPIDEM TARTRATE 5 MG TABLET PO PRN (21:15)
[2019-01-13] MEDS ORDERED: HydrOXYzine PAMOATE 25 MG CAPSULE PO PRN (21:15)
[2019-01-13 21:22] LABS: BASOPHILS % (AUTO) 1.4 % (0.0-2.0); EOSINOPHILS % (AUTO) 1.6 % (1.0-6.0); HEMATOCRIT 39.2 % (36-46); HEMOGLOBIN 13.2 g/dL (12.0-16.0); LYMPHOCYTES # (AUTO) 2.4 K/uL (1.0-4.8); MEAN CORPUSCULAR HEMOGLOBIN 30.8 pg (26.0-34.0); MEAN CORPUSCULAR HGB CONC 33.6 G/dL (31.0-37.0); MEAN CORPUSCULAR VOLUME 92 fL (80-100); MONOCYTES # (AUTO) 0.7 K/uL (0.1-1.0); MONOCYTES % (AUTO) 8.2 % (2.0-9.0); NEUTROPHILS % (AUTO) 59.8 % (40.0-70.0); PLATELET COUNT (AUTO) 287 K/uL (150-450); RED BLOOD CELL COUNT(AUTO) 4.29 MIL/uL (4.00-5.20); RED CELL DISTRIBUTION WIDTH 13.1 % (11.5-14.5)
[2019-01-13 21:33] LABS: HEMOGLOBIN A1C 6.1 % (4.5-6.2)
[2019-01-13 21:34] LABS: ANION GAP 7 mmol/L (8-16); CALCIUM, TOTAL 8.7 mg/dL (8.8-10.5); CARBON DIOXIDE 29 mmol/L (22-29); CHLORIDE 98 mmol/L (98-107); CREATININE 0.77 mg/dL (0.60-1.30); GLOMERULAR FILTR. RATE CALC > 60 mL/min (>60); GLUCOSE,RANDOM 86 mg/dL (70-110); SODIUM SERUM 134 mmol/L (136-145); UREA NITROGEN, BLOOD 15 mg/dL (7-18)
[2019-01-13 21:47] LABS: APPEARANCE,URINE CLOUDY (CLEAR); BILIRUBIN,URINE NEGATIVE (NEGATIVE); GLUCOSE, URINE (UA) NEGATIVE (NEGATIVE); KETONES,URINE NEGATIVE (NEGATIVE); LEUKOCYTE ESTERASE ,URINE SMALL (NEGATIVE); NITRATE,URINE NEGATIVE (NEGATIVE); OCCULT BLOOD,URINE SMALL (NEGATIVE); PROTEIN,URINE NEGATIVE (NEGATIVE)
[2019-01-13 21:49] LABS: ALANINE AMINOTRANSFERASE 28 U/L (12-78); ALBUMIN 3.5 g/dL (3.4-5.0); ALKALINE PHOSPHATASE 74 U/L (46-116); ASPARTATE AMINOTRANSFERASE 18 U/L (15-37); BILIRUBIN,TOTAL 0.4 mg/dL (0.1-1.0); CHOL/HDL RATIO 3.2 (3.9-5.7); CHOLESTEROL 212 mg/dL (131-200); FREE T4 (FREE THYROXINE) 0.98 ng/dL (0.76-1.46); HDL CHOLESTEROL 67 mg/dL (40-60); LDL CHOL (CALC.) 114 mg/dL (0-130); THYROID STIMULATING HORMONE 1.91 uIU/mL (0.36-3.74); TOTAL PROTEIN, SERUM 7.6 g/dL (6.4-8.2); TRIGLYCERIDES 156 mg/dL (15-150)
[2019-01-13 21:51] LABS: AMPHET/METH SCREEN,URINE NEGATIVE (NEGATIVE); BARBITURATE SCREEN, URINE NEGATIVE (NEGATIVE); BENZODIAZEPINES SCREEN,URINE NEGATIVE (NEGATIVE); CANNABINOID SCREEN,URINE NEGATIVE (NEGATIVE); COCAINE SCREEN,URINE NEGATIVE (NEGATIVE); METHADONE SCREEN, URINE NEGATIVE (NEGATIVE); OPIATE SCREEN,URINE POSITIVE (NEGATIVE); PHENCYCLIDINE SCREEN,URINE NEGATIVE (NEGATIVE)
[2019-01-13 22:03] LABS: BACTERIA,URINE Few /HPF (None Seen); SQUAMOUS EPITHELIAL CELL,UR Few /LPF (None Seen)
[2019-01-14 01:11] VITALS: BP 124/75
[2019-01-14] MEDS ORDERED: PNEUMOCOCCAL VACCINE POLYVALENT 0.5 ML VIAL [PPSV23] IM ONE (03:45)
[2019-01-14 06:38] LABS: GLUCOMETER DEV NAME(LOC) 3E.C; GLUCOSE,POINT OF CARE 131 MG/DL (70-110)
[2019-01-14 08:32] VITALS: BP 116/68
[2019-01-14] MEDS: ESCITALOPRAM OXALATE 10 MG TABLET PO SCH (09:42)
[2019-01-14] MEDS: ClonazePAM 0.5 MG TABLET PO SCH ×2 (09:42→17:39)
[2019-01-14] MEDS ORDERED: ACETAMINOPHEN 325 MG TABLET PO PRN (13:30)
[2019-01-14] MEDS ORDERED: HydrOXYzine PAMOATE 50 MG CAPSULE PO PRN (13:30)
[2019-01-14] MEDS ORDERED: PROMETHAZINE HCL 25 MG TABLET PO PRN (13:30)
[2019-01-14] MEDS ORDERED: GuaiFENesin/D-METHORPHAN [SUGAR-FREE] 200-20MG/10 ML SYRUP UDCUP PO PRN (13:30)
[2019-01-14] MEDS ORDERED: LOPERAMIDE HCL 2 MG CAPSULE PO PRN (13:30)
[2019-01-14 16:52] VITALS: BP 109/58
[2019-01-14] MEDS: THIAMINE HCL 100 MG TABLET PO SCH (17:38)
[2019-01-14] MEDS ORDERED: TraZODone HCL 50 MG TABLET PO SCH (21:00)
[2019-01-14] MEDS: GABAPENTIN 400 MG CAPSULE PO SCH (21:06)
[2019-01-14] MEDS: TraZODone HCL 100 MG TABLET PO SCH (21:06)
[2019-01-15 08:37] VITALS: BP 107/74
[2019-01-15] MEDS: ClonazePAM 0.5 MG TABLET PO SCH ×2 (09:28→16:26)
[2019-01-15] MEDS: THIAMINE HCL 100 MG TABLET PO SCH ×2 (09:28→16:26)
[2019-01-15] MEDS: ESCITALOPRAM OXALATE 10 MG TABLET PO SCH (09:28)
[2019-01-15] MEDS: MULTIVITAMINS WITH MINERALS, THERAPEUTIC TABLET PO SCH (09:28)
[2019-01-15] MEDS: TraZODone HCL 100 MG TABLET PO SCH (09:29)
[2019-01-15] MEDS: FOLIC ACID 1 MG TABLET PO SCH (09:29)
[2019-01-15 16:50] VITALS: BP 102/58
[2019-01-15] MEDS: GABAPENTIN 400 MG CAPSULE PO SCH (20:05)
[2019-01-15] MEDS ORDERED: ALBUTEROL SULFATE HFA 90 MCG/PUFF 8 GM INHALER IH PRN (20:45)
[2019-01-15] MEDS ORDERED: BACITRACIN 28.4 GM OINTMENT TP PRN (20:45)
[2019-01-15] MEDS ORDERED: BENZOCAINE/MENTHOL LOZENGE MM PRN (20:45)
[2019-01-15] MEDS ORDERED: CloNIDine HCL 0.1 MG TABLET PO PRN (20:45)
[2019-01-15] MEDS ORDERED: ONDANSETRON HCL 4 MG TABLET PO PRN (20:45)
[2019-01-15] MEDS ORDERED: PETROLATUM,WHITE 71 GM JELLY TP PRN (20:45)
[2019-01-15] MEDS: CHLORHEXIDINE GLUCONATE 0.12% 15 ML UDCUP ORAL RINSE PO SCH (21:19)
[2019-01-15] MEDS ORDERED: TraZODone HCL 100 MG TABLET PO ONE (21:30)
[2019-01-16 08:22] VITALS: BP 136/77
[2019-01-16] MEDS ORDERED: DOCUSATE SODIUM 100 MG CAPSULE PO SCH (09:00)
[2019-01-16] MEDS: ClonazePAM 0.5 MG TABLET PO SCH ×2 (09:00→21:03)
[2019-01-16] MEDS: OMEGA-3/DHA/EPA/FISH OIL 1,000 MG CAPSULE PO SCH (09:37)
[2019-01-16] MEDS: OMEPRAZOLE 20 MG CAPSULE PO SCH (09:37)
[2019-01-16] MEDS: CLINDAMYCIN HCL 150 MG CAPSULE PO SCH ×3 (09:37→16:26)
[2019-01-16] MEDS: MULTIVITAMINS WITH MINERALS, THERAPEUTIC TABLET PO SCH (09:37)
[2019-01-16] MEDS: FOLIC ACID 1 MG TABLET PO SCH (09:37)
[2019-01-16] MEDS: ESCITALOPRAM OXALATE 10 MG TABLET PO SCH (09:38)
[2019-01-16] MEDS: THIAMINE HCL 100 MG TABLET PO SCH ×2 (09:39→16:26)
[2019-01-16] MEDS: CHLORHEXIDINE GLUCONATE 0.12% 15 ML UDCUP ORAL RINSE PO SCH ×4 (09:50→21:03)
[2019-01-16 16:31] VITALS: BP 110/62
[2019-01-16] MEDS: IBUPROFEN 600 MG TABLET PO PRN (16:32)
[2019-01-16] MEDS: GABAPENTIN 400 MG CAPSULE PO SCH (21:03)
[2019-01-16] MEDS: IBUPROFEN 800 MG TABLET PO SCH (21:03)
[2019-01-16] MEDS: TraZODone HCL 100 MG TABLET PO SCH (21:03)
[2019-01-16] MEDS: DOCUSATE SODIUM 100 MG CAPSULE PO SCH (21:04)
[2019-01-17 08:00] VITALS: BP 126/68
[2019-01-17] MEDS ORDERED: ClonazePAM 0.5 MG TABLET PO SCH (09:00)
[2019-01-17] MEDS: FOLIC ACID 1 MG TABLET PO SCH (09:29)
[2019-01-17] MEDS: IBUPROFEN 800 MG TABLET PO SCH ×2 (09:29→20:48)
[2019-01-17] MEDS: CLINDAMYCIN HCL 150 MG CAPSULE PO SCH ×3 (09:29→16:40)
[2019-01-17] MEDS: THIAMINE HCL 100 MG TABLET PO SCH ×2 (09:29→16:40)
[2019-01-17] MEDS: OMEPRAZOLE 20 MG CAPSULE PO SCH (09:29)
[2019-01-17] MEDS: MULTIVITAMINS WITH MINERALS, THERAPEUTIC TABLET PO SCH (09:29)
[2019-01-17] MEDS: CHLORHEXIDINE GLUCONATE 0.12% 15 ML UDCUP ORAL RINSE PO SCH ×4 (09:30→20:48)
[2019-01-17] MEDS: OMEGA-3/DHA/EPA/FISH OIL 1,000 MG CAPSULE PO SCH (09:30)
[2019-01-17] MEDS: ESCITALOPRAM OXALATE 10 MG TABLET PO SCH (09:30)
[2019-01-17] MEDS: ClonazePAM 0.5 MG TABLET PO SCH ×2 (13:02→20:47)
[2019-01-17] MEDS: MAGNESIUM HYDROXIDE SUSPENSION 30 ML UDCUP PO PRN ×2 (13:11→20:51)
[2019-01-17 17:22] VITALS: BP 121/78
[2019-01-17] MEDS: DOCUSATE SODIUM 100 MG CAPSULE PO SCH (20:47)
[2019-01-17] MEDS: GABAPENTIN 400 MG CAPSULE PO SCH (20:47)
[2019-01-17] MEDS: TraZODone HCL 100 MG TABLET PO SCH (20:47)
[2019-01-18 08:26] VITALS: BP 131/73
[2019-01-18] MEDS: MULTIVITAMINS WITH MINERALS, THERAPEUTIC TABLET PO SCH (09:18)
[2019-01-18] MEDS: OMEGA-3/DHA/EPA/FISH OIL 1,000 MG CAPSULE PO SCH (09:18)
[2019-01-18] MEDS: ESCITALOPRAM OXALATE 10 MG TABLET PO SCH (09:18)
[2019-01-18] MEDS: OMEPRAZOLE 20 MG CAPSULE PO SCH (09:18)
[2019-01-18] MEDS: FOLIC ACID 1 MG TABLET PO SCH (09:18)
[2019-01-18] MEDS: CLINDAMYCIN HCL 150 MG CAPSULE PO SCH ×3 (09:18→17:11)
[2019-01-18] MEDS: IBUPROFEN 800 MG TABLET PO SCH ×2 (09:19→20:30)
[2019-01-18] MEDS: THIAMINE HCL 100 MG TABLET PO SCH ×2 (09:20→17:10)
[2019-01-18] MEDS: CHLORHEXIDINE GLUCONATE 0.12% 15 ML UDCUP ORAL RINSE PO SCH ×4 (09:22→20:30)
[2019-01-18] MEDS: ClonazePAM 0.5 MG TABLET PO SCH ×2 (12:37→20:30)
[2019-01-18 16:38] VITALS: BP 115/55
[2019-01-18] MEDS: TraZODone HCL 100 MG TABLET PO SCH (20:30)
[2019-01-18] MEDS: GABAPENTIN 400 MG CAPSULE PO SCH (20:30)
[2019-01-18] MEDS: DOCUSATE SODIUM 100 MG CAPSULE PO SCH (20:30)
[2019-01-19 08:00] VITALS: BP 114/62
[2019-01-19] MEDS: MULTIVITAMINS WITH MINERALS, THERAPEUTIC TABLET PO SCH (10:05)
[2019-01-19] MEDS: THIAMINE HCL 100 MG TABLET PO SCH ×2 (10:05→17:01)
[2019-01-19] MEDS: OMEPRAZOLE 20 MG CAPSULE PO SCH (10:05)
[2019-01-19] MEDS: IBUPROFEN 800 MG TABLET PO SCH ×2 (10:09→20:24)
[2019-01-19] MEDS: ESCITALOPRAM OXALATE 10 MG TABLET PO SCH (10:09)
[2019-01-19] MEDS: CLINDAMYCIN HCL 150 MG CAPSULE PO SCH ×3 (10:10→17:01)
[2019-01-19] MEDS: FOLIC ACID 1 MG TABLET PO SCH (10:10)
[2019-01-19] MEDS: CHLORHEXIDINE GLUCONATE 0.12% 15 ML UDCUP ORAL RINSE PO SCH ×4 (10:10→20:25)
[2019-01-19] MEDS: OMEGA-3/DHA/EPA/FISH OIL 1,000 MG CAPSULE PO SCH (10:10)
[2019-01-19] MEDS: ClonazePAM 0.5 MG TABLET PO SCH ×2 (12:43→20:24)
[2019-01-19 19:19] VITALS: BP 93/57
[2019-01-19] MEDS: DOCUSATE SODIUM 100 MG CAPSULE PO SCH (20:24)
[2019-01-19] MEDS: GABAPENTIN 400 MG CAPSULE PO SCH (20:24)
[2019-01-19] MEDS: TraZODone HCL 100 MG TABLET PO SCH (20:24)
[2019-01-20 08:00] VITALS: BP 133/92
[2019-01-20] MEDS: ESCITALOPRAM OXALATE 10 MG TABLET PO SCH (09:33)
[2019-01-20] MEDS: CLINDAMYCIN HCL 150 MG CAPSULE PO SCH ×3 (09:33→16:39)
[2019-01-20] MEDS: OMEPRAZOLE 20 MG CAPSULE PO SCH (09:33)
[2019-01-20] MEDS: IBUPROFEN 800 MG TABLET PO SCH ×2 (09:33→20:09)
[2019-01-20] MEDS: MULTIVITAMINS WITH MINERALS, THERAPEUTIC TABLET PO SCH (09:33)
[2019-01-20] MEDS: THIAMINE HCL 100 MG TABLET PO SCH ×2 (09:33→16:39)
[2019-01-20] MEDS: CHLORHEXIDINE GLUCONATE 0.12% 15 ML UDCUP ORAL RINSE PO SCH ×4 (09:33→20:57)
[2019-01-20] MEDS: OMEGA-3/DHA/EPA/FISH OIL 1,000 MG CAPSULE PO SCH (09:33)
[2019-01-20] MEDS: FOLIC ACID 1 MG TABLET PO SCH (09:33)
[2019-01-20] MEDS: ClonazePAM 0.5 MG TABLET PO SCH ×2 (12:29→20:08)
[2019-01-20] MEDS: MAG HYDROX/AL HYDROX/SIMETH ES 30 ML SUSPENSION UDCUP PO PRN (13:18)
[2019-01-20 17:27] VITALS: BP 118/63
[2019-01-20] MEDS: TraZODone HCL 100 MG TABLET PO SCH (20:08)
[2019-01-20] MEDS: DOCUSATE SODIUM 100 MG CAPSULE PO SCH (20:09)
[2019-01-20] MEDS: GABAPENTIN 400 MG CAPSULE PO SCH (20:09)
[2019-01-21 08:00] VITALS: BP 122/93
[2019-01-21] MEDS: ESCITALOPRAM OXALATE 10 MG TABLET PO SCH (09:04)
[2019-01-21] MEDS: FOLIC ACID 1 MG TABLET PO SCH (09:04)
[2019-01-21] MEDS: IBUPROFEN 800 MG TABLET PO SCH ×2 (09:04→20:58)
[2019-01-21] MEDS: OMEPRAZOLE 20 MG CAPSULE PO SCH (09:04)
[2019-01-21] MEDS: THIAMINE HCL 100 MG TABLET PO SCH ×2 (09:04→17:28)
[2019-01-21] MEDS: CHLORHEXIDINE GLUCONATE 0.12% 15 ML UDCUP ORAL RINSE PO SCH ×4 (09:04→20:56)
[2019-01-21] MEDS: MULTIVITAMINS WITH MINERALS, THERAPEUTIC TABLET PO SCH (09:04)
[2019-01-21] MEDS: OMEGA-3/DHA/EPA/FISH OIL 1,000 MG CAPSULE PO SCH (09:05)
[2019-01-21] MEDS: CLINDAMYCIN HCL 150 MG CAPSULE PO SCH ×3 (09:05→17:28)
[2019-01-21] MEDS: MAGNESIUM HYDROXIDE SUSPENSION 30 ML UDCUP PO PRN (12:05)
[2019-01-21] MEDS: ClonazePAM 0.5 MG TABLET PO SCH ×2 (13:08→20:57)
[2019-01-21 16:14] VITALS: BP 110/70
[2019-01-21] MEDS ORDERED: OMEG-135 PO (17:39)
[2019-01-21] MEDS ORDERED: TRAZ-220 PO (17:39)
[2019-01-21] MEDS ORDERED: CLON.5 PO ×2 (17:39)
[2019-01-21] MEDS ORDERED: GABA-533 PO (17:39)
[2019-01-21] MEDS ORDERED: ESCI10TA54 PO (17:39)
[2019-01-21] MEDS: GABAPENTIN 400 MG CAPSULE PO SCH (20:56)
[2019-01-21] MEDS: DOCUSATE SODIUM 100 MG CAPSULE PO SCH (20:56)
[2019-01-21] MEDS: TraZODone HCL 100 MG TABLET PO SCH (20:57)
[2019-01-22 09:45] VITALS: BP 108/77
[2019-01-22] MEDS: OMEPRAZOLE 20 MG CAPSULE PO SCH (10:00)
[2019-01-22] MEDS: OMEGA-3/DHA/EPA/FISH OIL 1,000 MG CAPSULE PO SCH (10:00)
[2019-01-22] MEDS: CLINDAMYCIN HCL 150 MG CAPSULE PO SCH ×3 (10:00→16:17)
[2019-01-22] MEDS: FOLIC ACID 1 MG TABLET PO SCH (10:01)
[2019-01-22] MEDS: MULTIVITAMINS WITH MINERALS, THERAPEUTIC TABLET PO SCH (10:01)
[2019-01-22] MEDS: THIAMINE HCL 100 MG TABLET PO SCH ×2 (10:01→16:17)
[2019-01-22] MEDS: CHLORHEXIDINE GLUCONATE 0.12% 15 ML UDCUP ORAL RINSE PO SCH ×4 (10:01→20:10)
[2019-01-22] MEDS: ESCITALOPRAM OXALATE 10 MG TABLET PO SCH (10:01)
[2019-01-22] MEDS: IBUPROFEN 800 MG TABLET PO SCH ×2 (10:02→20:10)
[2019-01-22] MEDS: ClonazePAM 0.5 MG TABLET PO SCH ×2 (13:14→20:10)
[2019-01-22] MEDS: IBUPROFEN 600 MG TABLET PO PRN (13:15)
[2019-01-22] MEDS: MAG HYDROX/AL HYDROX/SIMETH ES 30 ML SUSPENSION UDCUP PO PRN (18:07)
[2019-01-22 19:42] VITALS: BP 112/80
[2019-01-22] MEDS: TraZODone HCL 100 MG TABLET PO SCH (20:08)
[2019-01-22] MEDS: DOCUSATE SODIUM 100 MG CAPSULE PO SCH (20:08)
[2019-01-22] MEDS: GABAPENTIN 400 MG CAPSULE PO SCH (20:10)
[2019-01-22] MEDS: MAGNESIUM HYDROXIDE SUSPENSION 30 ML UDCUP PO PRN (20:12)
[2019-01-23] MEDS: OMEGA-3/DHA/EPA/FISH OIL 1,000 MG CAPSULE PO SCH (09:05)
[2019-01-23] MEDS: CHLORHEXIDINE GLUCONATE 0.12% 15 ML UDCUP ORAL RINSE PO SCH ×4 (09:05→20:50)
[2019-01-23] MEDS: ESCITALOPRAM OXALATE 10 MG TABLET PO SCH (09:08)
[2019-01-23] MEDS: OMEPRAZOLE 20 MG CAPSULE PO SCH (09:08)
[2019-01-23] MEDS: FOLIC ACID 1 MG TABLET PO SCH (09:08)
[2019-01-23] MEDS: THIAMINE HCL 100 MG TABLET PO SCH ×2 (09:08→16:46)
[2019-01-23] MEDS: MULTIVITAMINS WITH MINERALS, THERAPEUTIC TABLET PO SCH (09:09)
[2019-01-23] MEDS: IBUPROFEN 800 MG TABLET PO SCH ×2 (09:09→20:49)
[2019-01-23 09:41] VITALS: BP 128/84
[2019-01-23] MEDS ORDERED: PERID15L PO (12:07)
[2019-01-23] MEDS ORDERED: DSS100 PO (12:08)
[2019-01-23] MEDS ORDERED: OMEP20 PO (12:08)
[2019-01-23] MEDS ORDERED: IBUP-2071 PO (12:08)
[2019-01-23] MEDS: ClonazePAM 0.5 MG TABLET PO SCH ×2 (12:49→20:49)
[2019-01-23] MEDS: MAG HYDROX/AL HYDROX/SIMETH ES 30 ML SUSPENSION UDCUP PO PRN (13:03)
[2019-01-23 17:08] VITALS: BP 105/68
[2019-01-23] MEDS: TraZODone HCL 100 MG TABLET PO SCH (20:49)
[2019-01-23] MEDS: DOCUSATE SODIUM 100 MG CAPSULE PO SCH (20:49)
[2019-01-23] MEDS: GABAPENTIN 400 MG CAPSULE PO SCH (20:49)
[2019-01-24 08:05] VITALS: BP 102/69
[2019-01-24] MEDS ORDERED: LIDOCAINE 5% TRANSDERMAL PATCH TD SCH (09:30)
[2019-01-24] MEDS: CHLORHEXIDINE GLUCONATE 0.12% 15 ML UDCUP ORAL RINSE PO SCH ×2 (09:42→13:10)
[2019-01-24] MEDS: ESCITALOPRAM OXALATE 10 MG TABLET PO SCH (09:43)
[2019-01-24] MEDS: OMEGA-3/DHA/EPA/FISH OIL 1,000 MG CAPSULE PO SCH (09:43)
[2019-01-24] MEDS: OMEPRAZOLE 20 MG CAPSULE PO SCH (09:43)
[2019-01-24] MEDS: FOLIC ACID 1 MG TABLET PO SCH (09:43)
[2019-01-24] MEDS: IBUPROFEN 800 MG TABLET PO SCH (09:43)
[2019-01-24] MEDS: MULTIVITAMINS WITH MINERALS, THERAPEUTIC TABLET PO SCH (09:43)
[2019-01-24] MEDS: THIAMINE HCL 100 MG TABLET PO SCH (09:43)
[2019-01-24 12:49] LABS: APPEARANCE,URINE CLEAR (CLEAR); BILIRUBIN,URINE NEGATIVE (NEGATIVE); GLUCOSE, URINE (UA) NEGATIVE (NEGATIVE); KETONES,URINE NEGATIVE (NEGATIVE); LEUKOCYTE ESTERASE ,URINE TRACE (NEGATIVE); NITRATE,URINE NEGATIVE (NEGATIVE); OCCULT BLOOD,URINE NEGATIVE (NEGATIVE); PROTEIN,URINE NEGATIVE (NEGATIVE); UROBILINOGEN,URINE 0.2 mg/dL (<=1.0)
[2019-01-24 13:08] LABS: BACTERIA,URINE None Seen /HPF (None Seen); RBC,URINE None Seen /HPF (0-2); SQUAMOUS EPITHELIAL CELL,UR Rare /LPF (None Seen); WBC,URINE 0-2 /HPF (0-5)
[2019-01-24] MEDS: ClonazePAM 0.5 MG TABLET PO SCH (13:11)
[2019-01-24] MEDS ORDERED: -LIDODERM PATCH NOTE- MISC SCH (21:00)
== END 2019-01-24 16:45 | DRG 885 ==
LOC: EMS 17:08 → 3EC 01-14 00:03 → 3EI 01-15 20:48
PROVIDERS: ADMIT Psychiatry & Neurology Psychiatry; ATTEND Psychiatry & Neurology Psychiatry
DX: F33.2 Major depressive disorder, recurrent severe without psychotic features (principal); R45.851 Suicidal ideations; Z68.42 Body mass index [BMI] 45.0-49.9, adult; E66.9 Obesity, unspecified; E78.5 Hyperlipidemia, unspecified; F41.9 Anxiety disorder, unspecified; G47.00 Insomnia, unspecified; G47.30 Sleep apnea, unspecified; I10 Essential (primary) hypertension; J44.9 Chronic obstructive pulmonary disease, unspecified; K04.7 Periapical abscess without sinus; K21.9 Gastro-esophageal reflux disease without esophagitis; K74.60 Unspecified cirrhosis of liver; F17.210 Nicotine dependence, cigarettes, uncomplicated; F22 Delusional disorders; L27.0 Generalized skin eruption due to drugs and medicaments taken internally; M19.90 Unspecified osteoarthritis, unspecified site; T36.0X5A Adverse effect of penicillins, initial encounter; Y92.89 Other specified places as the place of occurrence of the external cause; Z59.0 Homelessness; Z88.8 Allergy status to other drugs, medicaments and biological substances; Z79.899 Other long term (current) drug therapy; Z91.19 Patient's noncompliance with other medical treatment and regimen; Z71.6 Tobacco abuse counseling
CPT/HCPCS: 83036; 84439; 84443; 87086; 93005; G0480

== ENCOUNTER 2019-02-21 19:27 | Inpatient (IN) | payer MEDICARE, MEDICAID ==
[~2019-02-21] VITALS: Ht 154.9 cm; Wt 100.2 kg
[~2019-02-21 19:27] MED LIST changes: +DSS100 PO; +ESCI10TA54 PO; +IBUP-2071 PO; +OMEP20 PO; +PERID15L PO
[2019-02-21] MEDS ORDERED: QUEtiapine FUMARATE 100 MG TABLET PO PRN (20:45)
[2019-02-21] MEDS: TraZODone HCL 100 MG TABLET PO SCH (21:33)
[2019-02-21] MEDS: GABAPENTIN 400 MG CAPSULE PO SCH (21:33)
[2019-02-21 22:04] VITALS: BP 108/62
[2019-02-22 01:11] VITALS: BP 110/63
[2019-02-22 08:38] VITALS: BP 102/61
[2019-02-22] MEDS: ESCITALOPRAM OXALATE 10 MG TABLET PO SCH (09:06)
[2019-02-22] MEDS: ClonazePAM 0.5 MG TABLET PO SCH ×2 (12:46→20:22)
[2019-02-22] MEDS ORDERED: HydrOXYzine PAMOATE 50 MG CAPSULE PO PRN (15:00)
[2019-02-22] MEDS ORDERED: PROMETHAZINE HCL 25 MG TABLET PO PRN (15:00)
[2019-02-22] MEDS ORDERED: MAG HYDROX/AL HYDROX/SIMETH ES 30 ML SUSPENSION UDCUP PO PRN (15:00)
[2019-02-22] MEDS ORDERED: LOPERAMIDE HCL 2 MG CAPSULE PO PRN ×2 (15:00→21:15)
[2019-02-22] MEDS ORDERED: GuaiFENesin/D-METHORPHAN [SUGAR-FREE] 200-20MG/10 ML SYRUP UDCUP PO PRN (15:00)
[2019-02-22] MEDS ORDERED: MAGNESIUM HYDROXIDE SUSPENSION 30 ML UDCUP PO PRN (15:00)
[2019-02-22] MEDS ORDERED: ACETAMINOPHEN 325 MG TABLET PO PRN (15:00)
[2019-02-22] MEDS: THIAMINE HCL 100 MG TABLET PO SCH (16:08)
[2019-02-22 16:14] VITALS: BP 107/68
[2019-02-22] MEDS: TraZODone HCL 100 MG TABLET PO SCH (20:22)
[2019-02-22] MEDS: GABAPENTIN 400 MG CAPSULE PO SCH (20:22)
[2019-02-22] MEDS ORDERED: ONDANSETRON HCL 4 MG TABLET PO PRN (21:15)
[2019-02-22] MEDS ORDERED: BACITRACIN 28.4 GM OINTMENT TP PRN (21:15)
[2019-02-22] MEDS ORDERED: ALBUTEROL SULFATE HFA 90 MCG/PUFF 8 GM INHALER IH PRN (21:15)
[2019-02-22] MEDS ORDERED: CloNIDine HCL 0.1 MG TABLET PO PRN (21:15)
[2019-02-22] MEDS ORDERED: PETROLATUM,WHITE 28 GM JELLY TP PRN (21:15)
[2019-02-22] MEDS ORDERED: BENZOCAINE/MENTHOL LOZENGE MM PRN (21:15)
[2019-02-23 06:16] VITALS: BP 120/83
[2019-02-23 08:23] LABS: HEMOGLOBIN 13.4 g/dL (12.0-16.0); LYMPHOCYTES # (AUTO) 2.6 K/uL (1.0-4.8); LYMPHOCYTES % (AUTO) 39.7 % (22.0-44.0); MEAN CORPUSCULAR HEMOGLOBIN 30.3 pg (26.0-34.0); MEAN CORPUSCULAR HGB CONC 32.6 G/dL (31.0-37.0); MEAN CORPUSCULAR VOLUME 93 fL (80-100); MONOCYTES # (AUTO) 0.5 K/uL (0.1-1.0); MONOCYTES % (AUTO) 7.1 % (2.0-9.0); NEUTROPHILS # (AUTO) 3.2 K/uL (1.8-7.7); NEUTROPHILS % (AUTO) 49.2 % (40.0-70.0); PLATELET COUNT (AUTO) 294 K/uL (150-450); RED BLOOD CELL COUNT(AUTO) 4.41 MIL/uL (4.00-5.20); RED CELL DISTRIBUTION WIDTH 13.2 % (11.5-14.5)
[2019-02-23 08:26] VITALS: BP 107/70
[2019-02-23] MEDS: FOLIC ACID 1 MG TABLET PO SCH (08:36)
[2019-02-23] MEDS: OMEGA-3/DHA/EPA/FISH OIL 1,000 MG CAPSULE PO SCH (08:36)
[2019-02-23] MEDS: ESCITALOPRAM OXALATE 10 MG TABLET PO SCH (08:36)
[2019-02-23] MEDS: DOCUSATE SODIUM 100 MG CAPSULE PO SCH (08:36)
[2019-02-23] MEDS: THIAMINE HCL 100 MG TABLET PO SCH ×2 (08:36→16:11)
[2019-02-23] MEDS: MULTIVITAMINS WITH MINERALS, THERAPEUTIC TABLET PO SCH (08:36)
[2019-02-23] MEDS: OMEPRAZOLE 20 MG CAPSULE PO SCH (08:36)
[2019-02-23 08:56] LABS: HEMOGLOBIN A1C 6.4 % (4.5-6.2)
[2019-02-23 08:58] LABS: ALANINE AMINOTRANSFERASE 38 U/L (12-78); ALBUMIN 3.5 g/dL (3.4-5.0); ALKALINE PHOSPHATASE 65 U/L (46-116); ANION GAP 8 mmol/L (8-16); ASPARTATE AMINOTRANSFERASE 28 U/L (15-37); BILIRUBIN,TOTAL 0.6 mg/dL (0.1-1.0); CALCIUM, TOTAL 8.9 mg/dL (8.8-10.5); CARBON DIOXIDE 28 mmol/L (22-29); CHLORIDE 106 mmol/L (98-107); CHOL/HDL RATIO 4.5 (3.9-5.7); CHOLESTEROL 262 mg/dL (131-200); CREATININE 0.82 mg/dL (0.60-1.30); FREE T4 (FREE THYROXINE) 0.88 ng/dL (0.76-1.46); GLOMERULAR FILTR. RATE CALC > 60 mL/min (>60); GLUCOSE,RANDOM 101 mg/dL (70-110); HDL CHOLESTEROL 58 mg/dL (40-60); LDL CHOL (CALC.) 163 mg/dL (0-130); POTASSIUM 3.7 mmol/L (3.5-5.1); SODIUM SERUM 142 mmol/L (136-145); TOTAL PROTEIN, SERUM 7.2 g/dL (6.4-8.2); TRIGLYCERIDES 205 mg/dL (15-150); UREA NITROGEN, BLOOD 17 mg/dL (7-18)
[2019-02-23] MEDS: IBUPROFEN 600 MG TABLET PO PRN (09:00)
[2019-02-23] MEDS: ClonazePAM 0.5 MG TABLET PO SCH ×2 (12:14→20:03)
[2019-02-23 16:23] VITALS: BP 114/67
[2019-02-23] MEDS: TraZODone HCL 100 MG TABLET PO SCH (20:03)
[2019-02-23] MEDS: GABAPENTIN 400 MG CAPSULE PO SCH (20:03)
[2019-02-23] MEDS: ZOLPIDEM TARTRATE 5 MG TABLET PO PRN (21:47)
[2019-02-24 06:43] VITALS: BP 119/77
[2019-02-24 08:11] VITALS: BP 106/64
[2019-02-24] MEDS: ESCITALOPRAM OXALATE 10 MG TABLET PO SCH (08:26)
[2019-02-24] MEDS: OMEPRAZOLE 20 MG CAPSULE PO SCH (08:26)
[2019-02-24] MEDS: THIAMINE HCL 100 MG TABLET PO SCH ×2 (08:27→17:12)
[2019-02-24] MEDS: MULTIVITAMINS WITH MINERALS, THERAPEUTIC TABLET PO SCH (08:27)
[2019-02-24] MEDS: DOCUSATE SODIUM 100 MG CAPSULE PO SCH (08:27)
[2019-02-24] MEDS: FOLIC ACID 1 MG TABLET PO SCH (08:27)
[2019-02-24] MEDS: OMEGA-3/DHA/EPA/FISH OIL 1,000 MG CAPSULE PO SCH (08:51)
[2019-02-24] MEDS: HydrOXYzine PAMOATE 25 MG CAPSULE PO PRN ×2 (08:53→17:12)
[2019-02-24] MEDS: ClonazePAM 0.5 MG TABLET PO SCH ×2 (12:32→20:50)
[2019-02-24 16:29] VITALS: BP 114/69
[2019-02-24] MEDS: ZOLPIDEM TARTRATE 5 MG TABLET PO PRN (20:50)
[2019-02-24] MEDS: GABAPENTIN 400 MG CAPSULE PO SCH (20:50)
[2019-02-24] MEDS: TraZODone HCL 100 MG TABLET PO SCH (20:50)
[2019-02-25 00:29] VITALS: BP 115/78
[2019-02-25 08:10] VITALS: BP 103/70
[2019-02-25] MEDS: MULTIVITAMINS WITH MINERALS, THERAPEUTIC TABLET PO SCH (08:34)
[2019-02-25] MEDS: DOCUSATE SODIUM 100 MG CAPSULE PO SCH (08:34)
[2019-02-25] MEDS: OMEPRAZOLE 20 MG CAPSULE PO SCH (08:34)
[2019-02-25] MEDS: ESCITALOPRAM OXALATE 10 MG TABLET PO SCH (08:34)
[2019-02-25] MEDS: FOLIC ACID 1 MG TABLET PO SCH (08:34)
[2019-02-25] MEDS: HydrOXYzine PAMOATE 25 MG CAPSULE PO PRN (08:34)
[2019-02-25] MEDS: THIAMINE HCL 100 MG TABLET PO SCH ×2 (08:34→16:31)
[2019-02-25] MEDS: OMEGA-3/DHA/EPA/FISH OIL 1,000 MG CAPSULE PO SCH (08:35)
[2019-02-25] MEDS: ClonazePAM 0.5 MG TABLET PO SCH ×2 (12:22→20:36)
[2019-02-25] MEDS: IBUPROFEN 600 MG TABLET PO PRN ×2 (14:31→20:42)
[2019-02-25 16:08] VITALS: BP 106/73
[2019-02-25] MEDS: GABAPENTIN 400 MG CAPSULE PO SCH (20:36)
[2019-02-25] MEDS: TraZODone HCL 100 MG TABLET PO SCH (20:36)
[2019-02-25 20:40] VITALS: BP 110/60
[2019-02-25] MEDS: SIMVASTATIN 10 MG TABLET PO SCH (22:09)
[2019-02-25] MEDS: ZOLPIDEM TARTRATE 5 MG TABLET PO PRN (22:19)
[2019-02-26 00:38] VITALS: BP 105/64
[2019-02-26 08:06] VITALS: BP 115/76
[2019-02-26 08:55] LABS: APPEARANCE,URINE CLEAR (CLEAR); BILIRUBIN,URINE NEGATIVE (NEGATIVE); GLUCOSE, URINE (UA) NEGATIVE (NEGATIVE); KETONES,URINE NEGATIVE (NEGATIVE); LEUKOCYTE ESTERASE ,URINE NEGATIVE (NEGATIVE); NITRATE,URINE NEGATIVE (NEGATIVE); OCCULT BLOOD,URINE NEGATIVE (NEGATIVE); PROTEIN,URINE NEGATIVE (NEGATIVE); UROBILINOGEN,URINE 0.2 mg/dL (<=1.0)
[2019-02-26] MEDS ORDERED: ESCITALOPRAM OXALATE 10 MG TABLET PO SCH (09:00)
[2019-02-26 09:05] LABS: AMPHET/METH SCREEN,URINE NEGATIVE (NEGATIVE); BARBITURATE SCREEN, URINE NEGATIVE (NEGATIVE); BENZODIAZEPINES SCREEN,URINE NEGATIVE (NEGATIVE); CANNABINOID SCREEN,URINE POSITIVE (NEGATIVE); COCAINE SCREEN,URINE NEGATIVE (NEGATIVE); METHADONE SCREEN, URINE NEGATIVE (NEGATIVE); OPIATE SCREEN,URINE NEGATIVE (NEGATIVE)
[2019-02-26 09:09] LABS: PHENCYCLIDINE SCREEN,URINE NEGATIVE (NEGATIVE)
[2019-02-26] MEDS: OMEPRAZOLE 20 MG CAPSULE PO SCH (09:14)
[2019-02-26] MEDS: MULTIVITAMINS WITH MINERALS, THERAPEUTIC TABLET PO SCH (09:14)
[2019-02-26] MEDS: OMEGA-3/DHA/EPA/FISH OIL 1,000 MG CAPSULE PO SCH (09:14)
[2019-02-26] MEDS: THIAMINE HCL 100 MG TABLET PO SCH ×2 (09:15→16:06)
[2019-02-26] MEDS: DOCUSATE SODIUM 100 MG CAPSULE PO SCH (09:15)
[2019-02-26] MEDS: FOLIC ACID 1 MG TABLET PO SCH (09:15)
[2019-02-26] MEDS: ClonazePAM 0.5 MG TABLET PO SCH ×2 (12:11→20:12)
[2019-02-26 16:07] VITALS: BP 109/73
[2019-02-26] MEDS: HydrOXYzine PAMOATE 25 MG CAPSULE PO PRN (16:07)
[2019-02-26 17:07] VITALS: BP 114/67
[2019-02-26] MEDS: GABAPENTIN 400 MG CAPSULE PO SCH (20:12)
[2019-02-26] MEDS: TraZODone HCL 100 MG TABLET PO SCH (20:12)
[2019-02-26] MEDS: ZOLPIDEM TARTRATE 5 MG TABLET PO PRN (20:39)
[2019-02-26] MEDS: SIMVASTATIN 10 MG TABLET PO SCH (21:00)
[2019-02-26] MEDS ORDERED: ESCI10TA PO (22:15)
[2019-02-26] MEDS ORDERED: SIMV-259 PO (22:22)
[2019-02-27 05:14] VITALS: BP 109/69
== END 2019-02-27 07:15 | disposition home or self-care (01) | DRG 885 ==
LOC: B2S 20:42 → 2WR 22:23 → B2S 22:24
PROVIDERS: ADMIT Psychiatry & Neurology Psychiatry; ATTEND Psychiatry & Neurology Psychiatry
DX: F33.2 Major depressive disorder, recurrent severe without psychotic features (principal); R45.851 Suicidal ideations; Z68.41 Body mass index [BMI] 40.0-44.9, adult; F41.9 Anxiety disorder, unspecified; G47.00 Insomnia, unspecified; G47.30 Sleep apnea, unspecified; J44.9 Chronic obstructive pulmonary disease, unspecified; K21.9 Gastro-esophageal reflux disease without esophagitis; M19.90 Unspecified osteoarthritis, unspecified site; E66.01 Morbid (severe) obesity due to excess calories; E78.5 Hyperlipidemia, unspecified; F12.90 Cannabis use, unspecified, uncomplicated; F17.200 Nicotine dependence, unspecified, uncomplicated; Z59.0 Homelessness; Z79.899 Other long term (current) drug therapy; Z87.440 Personal history of urinary (tract) infections; Z91.19 Patient's noncompliance with other medical treatment and regimen; Z91.5 Personal history of self-harm; Z98.891 History of uterine scar from previous surgery; Z56.0 Unemployment, unspecified
CPT/HCPCS: 80307; 83036; 84439; 84443; 87081

== ENCOUNTER 2019-05-31 14:47 | Inpatient (IN) | payer MEDICARE, MEDICAID ==
[~2019-05-31] VITALS: Ht 172.7 cm; Wt 95.6 kg
[~2019-05-31 14:47] MED LIST changes: -CLON.5 PO; -ESCI10TA54 PO; -IBUP-2071 PO; -PERID15L PO; +SIMV-259 PO
[2019-05-31] MEDS ORDERED: DULO20CA30 PO (14:55)
[2019-05-31 16:01] LABS: HEMATOCRIT 41.7 % (36-46); HEMOGLOBIN 13.8 g/dL (12.0-16.0); LYMPHOCYTES # (AUTO) 2.3 K/uL (1.0-4.8); LYMPHOCYTES % (AUTO) 33.8 % (22.0-44.0); MEAN CORPUSCULAR HEMOGLOBIN 30.6 pg (26.0-34.0); MEAN CORPUSCULAR HGB CONC 33.1 G/dL (31.0-37.0); MEAN CORPUSCULAR VOLUME 92 fL (80-100); MONOCYTES # (AUTO) 0.4 K/uL (0.1-1.0); MONOCYTES % (AUTO) 5.5 % (2.0-9.0); NEUTROPHILS % (AUTO) 58.7 % (40.0-70.0); PLATELET COUNT (AUTO) 291 K/uL (150-450); RED BLOOD CELL COUNT(AUTO) 4.52 MIL/uL (4.00-5.20)
[2019-05-31 16:13] LABS: ANION GAP 4 mmol/L (8-16); CALCIUM, TOTAL 9.1 mg/dL (8.8-10.5); CARBON DIOXIDE 28 mmol/L (22-29); CHLORIDE 103 mmol/L (98-107); CREATININE 0.83 mg/dL (0.60-1.30); GLOMERULAR FILTR. RATE CALC > 60 mL/min (>60); GLUCOSE,RANDOM 113 mg/dL (70-110); POTASSIUM 4.1 mmol/L (3.5-5.1); SODIUM SERUM 135 mmol/L (136-145); UREA NITROGEN, BLOOD 12 mg/dL (7-18)
[2019-05-31 16:19] LABS: ALANINE AMINOTRANSFERASE 26 U/L (12-78); ALBUMIN 3.7 g/dL (3.4-5.0); ALKALINE PHOSPHATASE 94 U/L (46-116); ASPARTATE AMINOTRANSFERASE 20 U/L (15-37); BILIRUBIN,TOTAL 0.6 mg/dL (0.1-1.0); TOTAL PROTEIN, SERUM 7.9 g/dL (6.4-8.2)
[2019-05-31 18:22] LABS: AMPHET/METH SCREEN,URINE NEGATIVE (NEGATIVE); BARBITURATE SCREEN, URINE NEGATIVE (NEGATIVE); BENZODIAZEPINES SCREEN,URINE NEGATIVE (NEGATIVE); CANNABINOID SCREEN,URINE POSITIVE (NEGATIVE); COCAINE SCREEN,URINE NEGATIVE (NEGATIVE); METHADONE SCREEN, URINE NEGATIVE (NEGATIVE); OPIATE SCREEN,URINE POSITIVE (NEGATIVE)
[2019-05-31 18:23] LABS: PHENCYCLIDINE SCREEN,URINE NEGATIVE (NEGATIVE)
[2019-05-31] MEDS ORDERED: LORazepam 1 MG TABLET PO ONE ×2 (20:00→20:30)
[2019-05-31] MEDS ORDERED: IBUPROFEN 600 MG TABLET PO ONE (20:30)
[2019-06-01] MEDS ORDERED: ZOLPIDEM TARTRATE 10 MG TABLET PO PRN (05:00)
[2019-06-01] MEDS ORDERED: QUEtiapine FUMARATE 100 MG TABLET PO PRN (05:00)
[2019-06-01] MEDS ORDERED: HydrOXYzine PAMOATE 50 MG CAPSULE PO PRN ×2 (07:15→21:15)
[2019-06-01] MEDS ORDERED: ESCITALOPRAM OXALATE 10 MG TABLET PO SCH (09:00)
[2019-06-01] MEDS ORDERED: ClonazePAM 1 MG TABLET PO SCH (09:00)
[2019-06-01] MEDS ORDERED: IBUPROFEN 600 MG TABLET PO ONE (19:30)
[2019-06-01] MEDS: LORazepam 2 MG TABLET PO PRN (19:34)
[2019-06-01 20:20] VITALS: BP 111/76
[2019-06-01] MEDS: TraZODone HCL 100 MG TABLET PO SCH (20:35)
[2019-06-01] MEDS ORDERED: TraZODone HCL 50 MG TABLET PO SCH (21:00)
[2019-06-01] MEDS: GABAPENTIN 400 MG CAPSULE PO SCH (21:48)
[2019-06-01] MEDS: SIMVASTATIN 10 MG TABLET PO SCH (21:48)
[2019-06-02 07:51] LABS: HEMOGLOBIN A1C 6.3 % (4.5-6.2)
[2019-06-02 08:19] LABS: CHOL/HDL RATIO 4.7 (3.9-5.7); THYROID STIMULATING HORMONE 1.21 uIU/mL (0.36-3.74)
[2019-06-02] MEDS: OMEGA-3/DHA/EPA/FISH OIL 1,000 MG CAPSULE PO SCH (08:37)
[2019-06-02] MEDS: DOCUSATE SODIUM 100 MG CAPSULE PO SCH (08:38)
[2019-06-02] MEDS: ESCITALOPRAM OXALATE 10 MG TABLET PO SCH (08:38)
[2019-06-02 11:32] VITALS: BP 100/58
[2019-06-02] MEDS: LORazepam 2 MG TABLET PO PRN (14:38)
[2019-06-02 16:51] VITALS: BP 102/60
[2019-06-02] MEDS: GABAPENTIN 400 MG CAPSULE PO SCH (20:34)
[2019-06-02] MEDS: TraZODone HCL 100 MG TABLET PO SCH (20:34)
[2019-06-02] MEDS: SIMVASTATIN 10 MG TABLET PO SCH (20:35)
[2019-06-03] MEDS: DOCUSATE SODIUM 100 MG CAPSULE PO SCH ×2 (08:27→20:09)
[2019-06-03] MEDS: LORazepam 2 MG TABLET PO PRN ×2 (08:27→13:26)
[2019-06-03] MEDS: OMEGA-3/DHA/EPA/FISH OIL 1,000 MG CAPSULE PO SCH (08:27)
[2019-06-03] MEDS: ESCITALOPRAM OXALATE 10 MG TABLET PO SCH (08:27)
[2019-06-03 09:18] VITALS: BP 128/72
[2019-06-03 16:28] VITALS: BP 124/70
[2019-06-03] MEDS: TraZODone HCL 100 MG TABLET PO SCH (20:07)
[2019-06-03] MEDS: SIMVASTATIN 10 MG TABLET PO SCH (20:07)
[2019-06-03] MEDS: GABAPENTIN 400 MG CAPSULE PO SCH (20:07)
[2019-06-03] MEDS: ZOLPIDEM TARTRATE 10 MG TABLET PO PRN (20:10)
[2019-06-03] MEDS ORDERED: ACETAMINOPHEN 325 MG TABLET PO PRN (21:00)
[2019-06-03] MEDS ORDERED: CloNIDine HCL 0.1 MG TABLET PO PRN (21:00)
[2019-06-03] MEDS ORDERED: ONDANSETRON HCL 4 MG TABLET PO PRN (21:00)
[2019-06-03] MEDS ORDERED: ALBUTEROL SULFATE HFA 90 MCG/PUFF 8 GM INHALER IH PRN (21:00)
[2019-06-03] MEDS ORDERED: MAG HYDROX/AL HYDROX/SIMETH ES 30 ML SUSPENSION UDCUP PO PRN (21:00)
[2019-06-03] MEDS ORDERED: OMEPRAZOLE 20 MG CAPSULE PO PRN (21:00)
[2019-06-03] MEDS ORDERED: PETROLATUM,WHITE 28 GM JELLY TP PRN (21:00)
[2019-06-03] MEDS ORDERED: LOPERAMIDE HCL 2 MG CAPSULE PO PRN (21:00)
[2019-06-03] MEDS ORDERED: MAGNESIUM HYDROXIDE SUSPENSION 30 ML UDCUP PO PRN (21:00)
[2019-06-03] MEDS ORDERED: IBUPROFEN 600 MG TABLET PO PRN (21:00)
[2019-06-03] MEDS ORDERED: BACITRACIN 28.4 GM OINTMENT TP PRN (21:00)
[2019-06-03] MEDS ORDERED: BENZOCAINE/MENTHOL LOZENGE MM PRN (21:00)
[2019-06-04 08:20] VITALS: BP 123/64
[2019-06-04] MEDS: OMEGA-3/DHA/EPA/FISH OIL 1,000 MG CAPSULE PO SCH (08:58)
[2019-06-04] MEDS: ESCITALOPRAM OXALATE 10 MG TABLET PO SCH (08:58)
[2019-06-04] MEDS: LORazepam 2 MG TABLET PO PRN (11:51)
[2019-06-04 16:08] VITALS: BP 93/60
[2019-06-04] MEDS: TraZODone HCL 100 MG TABLET PO SCH (20:03)
[2019-06-04] MEDS: GABAPENTIN 400 MG CAPSULE PO SCH (20:03)
[2019-06-04] MEDS: ZOLPIDEM TARTRATE 10 MG TABLET PO PRN (20:03)
[2019-06-04] MEDS: DOCUSATE SODIUM 100 MG CAPSULE PO SCH (20:03)
[2019-06-04] MEDS: SIMVASTATIN 10 MG TABLET PO SCH (20:04)
[2019-06-05] MEDS: ESCITALOPRAM OXALATE 10 MG TABLET PO SCH (08:12)
[2019-06-05] MEDS: OMEGA-3/DHA/EPA/FISH OIL 1,000 MG CAPSULE PO SCH (08:12)
[2019-06-05 08:37] VITALS: BP 124/62
== END 2019-06-05 09:40 | disposition home or self-care (01) | DRG 885 ==
LOC: EMS 14:49 → 3EC 06-01 19:00
PROVIDERS: ADMIT Psychiatry & Neurology Psychiatry; ATTEND Psychiatry & Neurology Psychiatry
DX: F33.2 Major depressive disorder, recurrent severe without psychotic features (principal); R45.851 Suicidal ideations; Z68.32 Body mass index [BMI] 32.0-32.9, adult; E66.9 Obesity, unspecified; E78.5 Hyperlipidemia, unspecified; F17.200 Nicotine dependence, unspecified, uncomplicated; F41.9 Anxiety disorder, unspecified; G47.00 Insomnia, unspecified; G47.30 Sleep apnea, unspecified; I10 Essential (primary) hypertension; J44.9 Chronic obstructive pulmonary disease, unspecified; K21.9 Gastro-esophageal reflux disease without esophagitis; K59.00 Constipation, unspecified; F19.10 Other psychoactive substance abuse, uncomplicated; K74.60 Unspecified cirrhosis of liver; M19.90 Unspecified osteoarthritis, unspecified site; Z59.0 Homelessness; Z79.899 Other long term (current) drug therapy; Z91.5 Personal history of self-harm; Z98.891 History of uterine scar from previous surgery; Z56.0 Unemployment, unspecified
CPT/HCPCS: 83036; 84443; G0480

== ENCOUNTER 2019-10-23 20:40 | Inpatient (IN) | payer MEDICARE, MEDICAID ==
[~2019-10-23] VITALS: Ht 152.4 cm; Wt 98.4 kg
[~2019-10-23 20:40] MED LIST changes: -OMEP20 PO; -TRAZ-220 PO; +TRAZ-257 PO
[2019-10-23 22:23] LABS: BASOPHILS % (AUTO) 0.9 % (0.0-2.0); EOSINOPHILS % (AUTO) 2.6 % (1.0-6.0); HEMATOCRIT 38.5 % (36-46); HEMOGLOBIN 13.1 g/dL (12.0-16.0); LYMPHOCYTES # (AUTO) 2.9 K/uL (1.0-4.8); LYMPHOCYTES % (AUTO) 37.1 % (22.0-44.0); MEAN CORPUSCULAR VOLUME 91 fL (80-100); MONOCYTES # (AUTO) 0.6 K/uL (0.1-1.0); MONOCYTES % (AUTO) 7.3 % (2.0-9.0); NEUTROPHILS # (AUTO) 4.1 K/uL (1.8-7.7); NEUTROPHILS % (AUTO) 52.1 % (40.0-70.0); PLATELET COUNT (AUTO) 269 K/uL (150-450); RED BLOOD CELL COUNT(AUTO) 4.23 MIL/uL (4.00-5.20); RED CELL DISTRIBUTION WIDTH 12.9 % (11.5-14.5)
[2019-10-23 22:38] LABS: ANION GAP 6 mmol/L (8-16); CALCIUM, TOTAL 8.9 mg/dL (8.8-10.5); CARBON DIOXIDE 30 mmol/L (22-29); CHLORIDE 102 mmol/L (98-107); CREATININE 0.96 mg/dL (0.60-1.30); GLOMERULAR FILTR. RATE CALC 60 mL/min (>60); GLUCOSE,RANDOM 142 mg/dL (70-110); POTASSIUM 3.9 mmol/L (3.5-5.1); SODIUM SERUM 138 mmol/L (136-145); UREA NITROGEN, BLOOD 14 mg/dL (7-18)
[2019-10-23 22:44] LABS: ALANINE AMINOTRANSFERASE 26 U/L (12-78); ALBUMIN 3.5 g/dL (3.4-5.0); ALKALINE PHOSPHATASE 91 U/L (46-116); ASPARTATE AMINOTRANSFERASE 23 U/L (15-37); BILIRUBIN,TOTAL 0.4 mg/dL (0.1-1.0); TOTAL PROTEIN, SERUM 7.4 g/dL (6.4-8.2)
[2019-10-24] MEDS ORDERED: ONDANSETRON HCL 4 MG TABLET PO ONE (01:15)
[2019-10-24] MEDS ORDERED: ZOLPIDEM TARTRATE 10 MG TABLET PO PRN ×2 (03:45→11:15)
[2019-10-24] MEDS ORDERED: HALOPERIDOL 5 MG TABLET PO PRN ×2 (03:45→11:15)
[2019-10-24] MEDS ORDERED: LORazepam 2 MG TABLET PO PRN (03:45)
[2019-10-24] MEDS: LORazepam 2 MG TABLET PO PRN (11:28)
[2019-10-24 14:26] VITALS: BP 123/82
[2019-10-24 14:27] VITALS: BP 123/82
[2019-10-24] MEDS ORDERED: ACETAMINOPHEN 325 MG TABLET PO PRN (15:45)
[2019-10-24] MEDS ORDERED: LOPERAMIDE HCL 2 MG CAPSULE PO PRN (15:45)
[2019-10-24] MEDS ORDERED: GuaiFENesin/D-METHORPHAN [SUGAR-FREE] 200-20MG/10 ML SYRUP UDCUP PO PRN (15:45)
[2019-10-24] MEDS ORDERED: QUEtiapine FUMARATE 100 MG TABLET PO PRN (15:45)
[2019-10-24] MEDS ORDERED: MAGNESIUM HYDROXIDE SUSPENSION 30 ML UDCUP PO PRN (15:45)
[2019-10-24] MEDS ORDERED: HydrOXYzine PAMOATE 50 MG CAPSULE PO PRN (15:45)
[2019-10-24] MEDS ORDERED: PROMETHAZINE HCL 25 MG TABLET PO PRN (15:45)
[2019-10-24] MEDS ORDERED: MAG HYDROX/AL HYDROX/SIMETH ES 30 ML SUSPENSION UDCUP PO PRN (15:45)
[2019-10-24] MEDS: THIAMINE HCL 100 MG TABLET PO SCH (19:13)
[2019-10-24] MEDS: TraZODone HCL 100 MG TABLET PO SCH (20:26)
[2019-10-24] MEDS ORDERED: GABAPENTIN 400 MG CAPSULE PO SCH (21:00)
[2019-10-25 07:35] LABS: CHOL/HDL RATIO 4.6 (3.9-5.7)
[2019-10-25] MEDS ORDERED: ESCITALOPRAM OXALATE 10 MG TABLET PO SCH (09:00)
[2019-10-25] MEDS: MULTIVITAMINS WITH MINERALS, THERAPEUTIC TABLET PO SCH (10:00)
[2019-10-25] MEDS: THIAMINE HCL 100 MG TABLET PO SCH ×2 (10:01→16:57)
[2019-10-25] MEDS: OMEGA-3/DHA/EPA/FISH OIL 1,000 MG CAPSULE PO SCH (10:02)
[2019-10-25] MEDS: FOLIC ACID 1 MG TABLET PO SCH (10:02)
[2019-10-25 11:20] VITALS: BP 133/81
[2019-10-25] MEDS ORDERED: ACETAMINOPHEN 325 MG TABLET PO PRN (14:15)
[2019-10-25] MEDS: LORazepam 2 MG TABLET PO PRN (14:15)
[2019-10-25] MEDS: IBUPROFEN 600 MG TABLET PO PRN (14:16)
[2019-10-25] MEDS ORDERED: CloNIDine HCL 0.1 MG TABLET PO PRN (17:00)
[2019-10-25] MEDS ORDERED: IBUPROFEN 600 MG TABLET PO PRN (17:00)
[2019-10-25] MEDS ORDERED: MAG HYDROX/AL HYDROX/SIMETH ES 30 ML SUSPENSION UDCUP PO PRN (17:00)
[2019-10-25] MEDS ORDERED: CloNIDine HCL 0.1 MG TABLET PO SCH (17:00)
[2019-10-25] MEDS ORDERED: HydrOXYzine PAMOATE 50 MG CAPSULE PO PRN (17:00)
[2019-10-25] MEDS: PREGABALIN 25 MG CAPSULE PO SCH (17:00)
[2019-10-25 20:00] VITALS: BP 140/50
[2019-10-25] MEDS: ATORVASTATIN CALCIUM 40 MG TABLET PO SCH (20:09)
[2019-10-25] MEDS: TraZODone HCL 100 MG TABLET PO SCH (20:09)
[2019-10-25 20:22] VITALS: BP 140/50
[2019-10-26 08:29] VITALS: BP 133/79
[2019-10-26] MEDS: FOLIC ACID 1 MG TABLET PO SCH (09:10)
[2019-10-26] MEDS: MULTIVITAMINS WITH MINERALS, THERAPEUTIC TABLET PO SCH (09:10)
[2019-10-26] MEDS: THIAMINE HCL 100 MG TABLET PO SCH ×2 (09:10→16:22)
[2019-10-26] MEDS: PREGABALIN 25 MG CAPSULE PO SCH ×3 (09:10→16:22)
[2019-10-26] MEDS: DULoxetine HCL 20 MG CAPSULE PO SCH (09:10)
[2019-10-26] MEDS: OMEGA-3/DHA/EPA/FISH OIL 1,000 MG CAPSULE PO SCH (09:10)
[2019-10-26] MEDS: LORazepam 2 MG TABLET PO PRN ×3 (09:43→19:38)
[2019-10-26 17:36] VITALS: BP 99/54
[2019-10-26 18:15] VITALS: BP 99/54
[2019-10-26] MEDS: ATORVASTATIN CALCIUM 40 MG TABLET PO SCH (20:14)
[2019-10-26] MEDS: TraZODone HCL 100 MG TABLET PO SCH (20:14)
[2019-10-27] MEDS: LORazepam 2 MG TABLET PO PRN ×3 (06:17→19:48)
[2019-10-27 09:08] VITALS: BP 146/68
[2019-10-27] MEDS: OMEGA-3/DHA/EPA/FISH OIL 1,000 MG CAPSULE PO SCH (09:30)
[2019-10-27] MEDS: MULTIVITAMINS WITH MINERALS, THERAPEUTIC TABLET PO SCH (09:30)
[2019-10-27] MEDS: THIAMINE HCL 100 MG TABLET PO SCH ×2 (09:30→16:48)
[2019-10-27] MEDS: FOLIC ACID 1 MG TABLET PO SCH (09:31)
[2019-10-27] MEDS: ATORVASTATIN CALCIUM 40 MG TABLET PO SCH ×2 (09:31→20:09)
[2019-10-27] MEDS: DULoxetine HCL 20 MG CAPSULE PO SCH (09:32)
[2019-10-27] MEDS: PREGABALIN 25 MG CAPSULE PO SCH ×3 (10:28→16:48)
[2019-10-27 13:12] VITALS: BP 125/72
[2019-10-27] MEDS: IBUPROFEN 600 MG TABLET PO PRN (15:09)
[2019-10-27 18:03] VITALS: BP 138/83
[2019-10-27] MEDS: TraZODone HCL 100 MG TABLET PO SCH (20:09)
[2019-10-28 06:50] VITALS: BP 99/64
[2019-10-28 08:00] VITALS: BP 139/90
[2019-10-28] MEDS: DULoxetine HCL 20 MG CAPSULE PO SCH (08:06)
[2019-10-28] MEDS: OMEGA-3/DHA/EPA/FISH OIL 1,000 MG CAPSULE PO SCH (08:06)
[2019-10-28] MEDS: MULTIVITAMINS WITH MINERALS, THERAPEUTIC TABLET PO SCH (08:06)
[2019-10-28] MEDS: PREGABALIN 25 MG CAPSULE PO SCH (08:06)
[2019-10-28] MEDS: THIAMINE HCL 100 MG TABLET PO SCH (08:06)
[2019-10-28] MEDS: FOLIC ACID 1 MG TABLET PO SCH (08:06)
[2019-10-28] MEDS: LORazepam 2 MG TABLET PO PRN (08:10)
[2019-10-28] MEDS: IBUPROFEN 600 MG TABLET PO PRN (08:12)
[2019-10-28] MEDS ORDERED: DULO20CA30 PO (09:17)
[2019-10-28] MEDS ORDERED: PREG25 PO (09:17)
[2019-10-28] MEDS ORDERED: ATOR40TA28 PO (09:23)
== END 2019-10-28 11:00 | disposition home or self-care (01) | DRG 885 ==
LOC: EMS 20:42 → 3EX 10-24 11:23
PROVIDERS: ADMIT Psychiatry & Neurology Psychiatry; ATTEND Psychiatry & Neurology Psychiatry
DX: F33.9 Major depressive disorder, recurrent, unspecified (principal); B19.20 Unspecified viral hepatitis C without hepatic coma; R45.851 Suicidal ideations; E73.9 Lactose intolerance, unspecified; E78.5 Hyperlipidemia, unspecified; K59.00 Constipation, unspecified; G47.30 Sleep apnea, unspecified; M19.90 Unspecified osteoarthritis, unspecified site; F17.200 Nicotine dependence, unspecified, uncomplicated; G89.4 Chronic pain syndrome; I10 Essential (primary) hypertension; R45.87 Impulsiveness; Z65.3 Problems related to other legal circumstances; Z59.0 Homelessness; Z91.19 Patient's noncompliance with other medical treatment and regimen; Z81.8 Family history of other mental and behavioral disorders
CPT/HCPCS: 83036; 87081; G0378; G0480; Q0162

== ENCOUNTER 2021-06-28 19:06 | Emergency (ER) | payer MEDICARE, OTHER ==
[~2021-06-28] VITALS: Ht 162.6 cm; Wt 68.2 kg
[~2021-06-28 19:06] MED LIST changes: +ATOR40TA28 PO; -DSS100 PO; +DULO20CA27 PO; -ESCI10TA PO; -GABA-533 PO; +PREG25 PO; -SIMV-259 PO
[2021-06-28] MEDS ORDERED: CLON-592 PO (19:26)
[2021-06-28] MEDS ORDERED: GABA-1201 PO (19:26)
[2021-06-28] MEDS ORDERED: HYDR-4072 PO (19:26)
[2021-06-28] MEDS ORDERED: IBUP-2070 PO (19:26)
[2021-06-28] MEDS ORDERED: ESCI-8 PO (19:26)
[2021-06-28 21:06] LABS: BASOPHILS % (AUTO) 0.6 % (0.0-2.0); HEMATOCRIT 39.7 % (36-46); HEMOGLOBIN 13.1 g/dL (12.0-16.0); LYMPHOCYTES # (AUTO) 3.5 K/uL (1.0-4.8); LYMPHOCYTES % (AUTO) 37.2 % (22.0-44.0); MEAN CORPUSCULAR HEMOGLOBIN 30.4 pg (26.0-34.0); MEAN CORPUSCULAR VOLUME 92 fL (80-100); MONOCYTES # (AUTO) 0.8 K/uL (0.1-1.0); MONOCYTES % (AUTO) 8.2 % (2.0-9.0); PLATELET COUNT (AUTO) 288 K/uL (150-450); RED BLOOD CELL COUNT(AUTO) 4.31 MIL/uL (4.00-5.20); RED CELL DISTRIBUTION WIDTH 13.4 % (11.5-14.5)
[2021-06-28 21:17] LABS: ANION GAP 10 mmol/L (8-16); CALCIUM, TOTAL 8.9 mg/dL (8.8-10.5); CARBON DIOXIDE 28 mmol/L (22-29); CHLORIDE 99 mmol/L (98-107); CREATININE 0.71 mg/dL (0.60-1.30); GLOMERULAR FILTR. RATE CALC > 60 mL/min (>60); GLUCOSE,RANDOM 89 mg/dL (70-110); POTASSIUM 3.9 mmol/L (3.5-5.1); SODIUM SERUM 137 mmol/L (136-145); UREA NITROGEN, BLOOD 11 mg/dL (7-18)
[2021-06-28 21:23] LABS: ALANINE AMINOTRANSFERASE 26 U/L (12-78); ALBUMIN 3.9 g/dL (3.4-5.0); ALKALINE PHOSPHATASE 71 U/L (46-116); ASPARTATE AMINOTRANSFERASE 19 U/L (15-37); BILIRUBIN,TOTAL 0.5 mg/dL (0.1-1.0); LIPASE 103 U/L (73-393); TOTAL PROTEIN, SERUM 7.7 g/dL (6.4-8.2)
[2021-06-28 21:43] LABS: APPEARANCE,URINE CLEAR (CLEAR); BILIRUBIN,URINE NEGATIVE (NEGATIVE); GLUCOSE, URINE (UA) NEGATIVE (NEGATIVE); KETONES,URINE NEGATIVE (NEGATIVE); LEUKOCYTE ESTERASE ,URINE NEGATIVE (NEGATIVE); NITRATE,URINE NEGATIVE (NEGATIVE); OCCULT BLOOD,URINE SMALL (NEGATIVE); PROTEIN,URINE NEGATIVE (NEGATIVE); UROBILINOGEN,URINE 0.2 mg/dL (<=1.0)
[2021-06-28 21:55] LABS: AMPHET/METH SCREEN,URINE NEGATIVE (NEGATIVE); BARBITURATE SCREEN, URINE NEGATIVE (NEGATIVE); BENZODIAZEPINES SCREEN,URINE NEGATIVE (NEGATIVE); CANNABINOID SCREEN,URINE POSITIVE (NEGATIVE); COCAINE SCREEN,URINE NEGATIVE (NEGATIVE); METHADONE SCREEN, URINE NEGATIVE (NEGATIVE); OPIATE SCREEN,URINE POSITIVE (NEGATIVE); PHENCYCLIDINE SCREEN,URINE NEGATIVE (NEGATIVE)
[2021-06-28 22:08] LABS: BACTERIA,URINE Rare /HPF (None Seen); RBC,URINE 0-2 /HPF (0-2); WBC,URINE 0-2 /HPF (0-5)
[2021-06-28 23:45] LABS: COVID AG,FIA SOURCE NASOPHARYNGEAL
[2021-06-29] MEDS ORDERED: HALOPERIDOL 5 MG TABLET PO PRN (01:00)
[2021-06-29] MEDS ORDERED: OLANZapine 5 MG RAPDIS TABLET PO PRN (01:00)
[2021-06-29] MEDS ORDERED: LORazepam 2 MG TABLET PO PRN (01:00)
[2021-06-29 09:30] VITALS: BP 117/73
[2021-06-29] MEDS ORDERED: ESCITALOPRAM OXALATE 10 MG TABLET PO ONE (11:00)
[2021-06-29] MEDS ORDERED: IBUPROFEN 400 MG TABLET PO ONE (11:00)
== END 2021-06-29 11:43 | disposition admitted as inpatient to this hospital (09) ==
LOC: EMS 19:10
DX: F25.1 Schizoaffective disorder, depressive type (principal); Z20.822 Contact with and (suspected) exposure to COVID-19; I10 Essential (primary) hypertension; E78.5 Hyperlipidemia, unspecified; J44.9 Chronic obstructive pulmonary disease, unspecified; Z79.899 Other long term (current) drug therapy; Z91.09 Other allergy status, other than to drugs and biological substances
CPT/HCPCS: 36415; 80053; 80307; 81001; 83690; 85025; 87426; 93005; 99285; G0480

== ENCOUNTER 2021-09-08 18:49 | Inpatient (IN) | payer MEDICARE, MEDICAID ==
[~2021-09-08] VITALS: Ht 152.4 cm; Wt 88.5 kg
[~2021-09-08 18:49] MED LIST changes: -ATOR40TA28 PO; +CLON-592 PO; -DULO20CA27 PO; +ESCI-8 PO; +GABA-1201 PO; +HYDR-4072 PO; +IBUP-2070 PO; -OMEG-135 PO; -PREG25 PO
[2021-09-08 19:59] LABS: BASOPHILS % (AUTO) 0.8 % (0.0-2.0); EOSINOPHILS % (AUTO) 1.1 % (1.0-6.0); HEMATOCRIT 38.4 % (36-46); LYMPHOCYTES # (AUTO) 3.7 K/uL (1.0-4.8); MEAN CORPUSCULAR HEMOGLOBIN 30.9 pg (26.0-34.0); MEAN CORPUSCULAR VOLUME 91 fL (80-100); MONOCYTES # (AUTO) 0.8 K/uL (0.1-1.0); MONOCYTES % (AUTO) 8.6 % (2.0-9.0); NEUTROPHILS # (AUTO) 4.5 K/uL (1.8-7.7); NEUTROPHILS % (AUTO) 49.5 % (40.0-70.0); PLATELET COUNT (AUTO) 274 K/uL (150-450); RED BLOOD CELL COUNT(AUTO) 4.22 MIL/uL (4.00-5.20); RED CELL DISTRIBUTION WIDTH 13.1 % (11.5-14.5)
[2021-09-08 20:06] LABS: ANION GAP 5 mmol/L (8-16); CALCIUM, TOTAL 9.7 mg/dL (8.8-10.5); CARBON DIOXIDE 31 mmol/L (22-29); CHLORIDE 100 mmol/L (98-107); CREATININE 0.89 mg/dL (0.60-1.30); GLOMERULAR FILTR. RATE CALC > 60 mL/min (>60); GLUCOSE,RANDOM 115 mg/dL (70-110); POTASSIUM 3.7 mmol/L (3.5-5.1); SODIUM SERUM 136 mmol/L (136-145); UREA NITROGEN, BLOOD 13 mg/dL (7-18)
[2021-09-08 20:12] LABS: ALANINE AMINOTRANSFERASE 21 U/L (12-78); ALKALINE PHOSPHATASE 77 U/L (46-116); ASPARTATE AMINOTRANSFERASE 15 U/L (15-37); BILIRUBIN,TOTAL 0.6 mg/dL (0.1-1.0)
[2021-09-08 20:42] LABS: AMPHET/METH SCREEN,URINE NEGATIVE (NEGATIVE); BARBITURATE SCREEN, URINE NEGATIVE (NEGATIVE); BENZODIAZEPINES SCREEN,URINE NEGATIVE (NEGATIVE); CANNABINOID SCREEN,URINE POSITIVE (NEGATIVE); COCAINE SCREEN,URINE NEGATIVE (NEGATIVE); METHADONE SCREEN, URINE NEGATIVE (NEGATIVE); OPIATE SCREEN,URINE POSITIVE (NEGATIVE); PHENCYCLIDINE SCREEN,URINE NEGATIVE (NEGATIVE)
[2021-09-08] MEDS ORDERED: ZOLPIDEM TARTRATE 10 MG TABLET PO PRN (20:45)
[2021-09-08] MEDS ORDERED: OLANZapine 5 MG RAPDIS TABLET PO PRN (20:45)
[2021-09-08 23:10] LABS: COVID AG,FIA SOURCE NASOPHARYNGEAL
[2021-09-09 01:13] LABS: APPEARANCE,URINE CLEAR (CLEAR); BILIRUBIN,URINE NEGATIVE (NEGATIVE); GLUCOSE, URINE (UA) NEGATIVE (NEGATIVE); KETONES,URINE NEGATIVE (NEGATIVE); LEUKOCYTE ESTERASE ,URINE NEGATIVE (NEGATIVE); NITRATE,URINE NEGATIVE (NEGATIVE); OCCULT BLOOD,URINE TRACE (NEGATIVE); PROTEIN,URINE NEGATIVE (NEGATIVE); UROBILINOGEN,URINE 0.2 mg/dL (<=1.0)
[2021-09-09 01:14] LABS: RBC,URINE 0-2 /HPF (0-2)
[2021-09-09 01:15] LABS: BACTERIA,URINE Rare /HPF (None Seen); WBC,URINE 0-2 /HPF (0-5)
[2021-09-09 03:02] VITALS: BP 112/60
[2021-09-09] MEDS ORDERED: INFLUENZA VIRUS VACCINE QVS 2021-22 (6MO+)/PF 60 MCG/0.5 ML SYRINGE IM. ONE (03:45)
[2021-09-09] MEDS ORDERED: PNEUMOCOCCAL VACCINE POLYVALENT 0.5 ML VIAL [PPSV23] IM. ONE (03:45)
[2021-09-09 06:47] LABS: CHOL/HDL RATIO 3.1 (3.9-5.7)
[2021-09-09 08:00] VITALS: BP 100/56
[2021-09-09] MEDS: LORazepam 2 MG TABLET PO PRN (11:59)
[2021-09-09] MEDS ORDERED: ACETAMINOPHEN 325 MG TABLET PO PRN (16:30)
[2021-09-09] MEDS ORDERED: MAG HYDROX/AL HYDROX/SIMETH ES 30 ML SUSPENSION UDCUP PO PRN ×2 (16:30)
[2021-09-09] MEDS ORDERED: TUBERCULIN, PURIFIED PROTEIN DERIVATIVE 5 TU/0.1 ML SYRINGE ID ONE (16:30)
[2021-09-09] MEDS ORDERED: MAGNESIUM HYDROXIDE SUSPENSION 30 ML UDCUP PO PRN (16:30)
[2021-09-09] MEDS ORDERED: CloNIDine HCL 0.1 MG TABLET PO PRN (16:30)
[2021-09-09] MEDS ORDERED: HydrOXYzine PAMOATE 50 MG CAPSULE PO PRN ×2 (16:30)
[2021-09-09] MEDS ORDERED: GuaiFENesin/D-METHORPHAN [SUGAR-FREE] 200-20MG/10 ML SYRUP UDCUP PO PRN (16:30)
[2021-09-09] MEDS ORDERED: LOPERAMIDE HCL 2 MG CAPSULE PO PRN (16:30)
[2021-09-09] MEDS ORDERED: PROMETHAZINE HCL 25 MG TABLET PO PRN (16:30)
[2021-09-09 17:04] VITALS: BP 127/66
[2021-09-09 17:05] VITALS: BP 127/66
[2021-09-09 18:41] VITALS: BP 115/63
[2021-09-09] MEDS: GABAPENTIN 400 MG CAPSULE PO SCH ×2 (18:41→20:37)
[2021-09-09] MEDS: THIAMINE 100 MG TABLET PO SCH (18:41)
[2021-09-09] MEDS: ACAMPROSATE CALCIUM 333 MG DR TABLET PO SCH (18:41)
[2021-09-09] MEDS: IBUPROFEN 600 MG TABLET PO PRN (18:41)
[2021-09-09] MEDS: CloNIDine HCL 0.1 MG TABLET PO SCH ×2 (18:41→22:08)
[2021-09-09] MEDS: MELATONIN 5 MG TABLET PO SCH (20:37)
[2021-09-09] MEDS: TraZODone HCL 100 MG TABLET PO SCH (20:37)
[2021-09-10 00:05] VITALS: BP 132/66
[2021-09-10 04:05] VITALS: BP 123/65
[2021-09-10 06:00] VITALS: BP 107/67
[2021-09-10] MEDS: CloNIDine HCL 0.1 MG TABLET PO SCH ×3 (06:06→17:44)
[2021-09-10] MEDS: LORazepam 2 MG TABLET PO PRN ×2 (06:32→12:19)
[2021-09-10 07:20] LABS: HEMOGLOBIN A1C 5.9 % (3.8-5.6)
[2021-09-10 07:44] LABS: CHOL/HDL RATIO 3.3 (3.9-5.7); FREE T4 (FREE THYROXINE) 0.99 ng/dL (0.76-1.46); THYROID STIMULATING HORMONE 0.32 uIU/mL (0.36-3.74)
[2021-09-10] MEDS: MULTIVITAMINS WITH MINERALS, THERAPEUTIC TABLET PO SCH (08:14)
[2021-09-10] MEDS: OMEGA-3/DHA/EPA/FISH OIL 1,000 MG CAPSULE PO SCH (08:15)
[2021-09-10] MEDS: ACAMPROSATE CALCIUM 333 MG DR TABLET PO SCH ×3 (08:15→16:46)
[2021-09-10] MEDS: GABAPENTIN 400 MG CAPSULE PO SCH ×5 (08:15→21:02)
[2021-09-10] MEDS: THIAMINE 100 MG TABLET PO SCH ×2 (08:15→16:45)
[2021-09-10] MEDS: FOLIC ACID 1 MG TABLET PO SCH (08:15)
[2021-09-10 08:45] VITALS: BP 135/75
[2021-09-10] MEDS ORDERED: ESCITALOPRAM OXALATE 10 MG TABLET PO SCH (09:00)
[2021-09-10 12:48] VITALS: BP 123/72
[2021-09-10] MEDS: IBUPROFEN 600 MG TABLET PO PRN (12:48)
[2021-09-10] MEDS: LIDOCAINE 5% TRANSDERMAL PATCH TD SCH (13:29)
[2021-09-10 16:30] VITALS: BP 99/69
[2021-09-10] MEDS ORDERED: LIDOCAINE 5% TRANSDERMAL PATCH TD SCH (17:00)
[2021-09-10] MEDS: TraZODone HCL 100 MG TABLET PO SCH (21:01)
[2021-09-10] MEDS: MELATONIN 5 MG TABLET PO SCH (21:02)
[2021-09-10] MEDS: -LIDODERM PATCH NOTE- MISC SCH (21:15)
[2021-09-11 06:30] VITALS: BP 124/66
[2021-09-11] MEDS: CloNIDine HCL 0.1 MG TABLET PO SCH ×4 (06:45→21:20)
[2021-09-11 08:10] VITALS: BP 128/75
[2021-09-11] MEDS: GABAPENTIN 400 MG CAPSULE PO SCH ×4 (09:00→21:19)
[2021-09-11 09:05] VITALS: BP 128/67
[2021-09-11] MEDS: THIAMINE 100 MG TABLET PO SCH ×2 (09:16→16:41)
[2021-09-11] MEDS: ACAMPROSATE CALCIUM 333 MG DR TABLET PO SCH ×3 (09:16→16:39)
[2021-09-11] MEDS: OMEGA-3/DHA/EPA/FISH OIL 1,000 MG CAPSULE PO SCH (09:16)
[2021-09-11] MEDS: MULTIVITAMINS WITH MINERALS, THERAPEUTIC TABLET PO SCH (09:16)
[2021-09-11] MEDS: ESCITALOPRAM OXALATE 10 MG TABLET PO SCH (09:17)
[2021-09-11] MEDS: FOLIC ACID 1 MG TABLET PO SCH (09:19)
[2021-09-11] MEDS: IBUPROFEN 600 MG TABLET PO PRN ×2 (09:19→16:40)
[2021-09-11 09:40] VITALS: BP 124/66
[2021-09-11] MEDS: LORazepam 2 MG TABLET PO PRN ×3 (09:42→21:30)
[2021-09-11] MEDS: LIDOCAINE 5% TRANSDERMAL PATCH TD SCH (09:44)
[2021-09-11 12:10] VITALS: BP 120/60
[2021-09-11 16:11] VITALS: BP 115/61
[2021-09-11] MEDS: TraZODone HCL 100 MG TABLET PO SCH (20:25)
[2021-09-11] MEDS: MELATONIN 5 MG TABLET PO SCH (20:25)
[2021-09-11] MEDS: -LIDODERM PATCH NOTE- MISC SCH (21:18)
[2021-09-12 06:00] VITALS: BP 90/58
[2021-09-12] MEDS: CloNIDine HCL 0.1 MG TABLET PO SCH ×5 (06:00→21:28)
[2021-09-12] MEDS: GABAPENTIN 400 MG CAPSULE PO SCH ×3 (09:20→20:42)
[2021-09-12] MEDS: MULTIVITAMINS WITH MINERALS, THERAPEUTIC TABLET PO SCH (09:20)
[2021-09-12] MEDS: OMEGA-3/DHA/EPA/FISH OIL 1,000 MG CAPSULE PO SCH (09:20)
[2021-09-12] MEDS: THIAMINE 100 MG TABLET PO SCH ×2 (09:21→16:12)
[2021-09-12] MEDS: FOLIC ACID 1 MG TABLET PO SCH (09:22)
[2021-09-12] MEDS: ESCITALOPRAM OXALATE 10 MG TABLET PO SCH (09:22)
[2021-09-12] MEDS: ACAMPROSATE CALCIUM 333 MG DR TABLET PO SCH ×3 (09:23→16:12)
[2021-09-12] MEDS: LIDOCAINE 5% TRANSDERMAL PATCH TD SCH (09:25)
[2021-09-12 10:51] VITALS: BP 113/74
[2021-09-12 13:16] VITALS: BP 109/59
[2021-09-12] MEDS: IBUPROFEN 600 MG TABLET PO PRN (13:16)
[2021-09-12] MEDS: LORazepam 2 MG TABLET PO PRN ×2 (13:16→18:43)
[2021-09-12 14:16] VITALS: BP 106/55
[2021-09-12 16:32] VITALS: BP 105/68
[2021-09-12 18:43] VITALS: BP 115/72
[2021-09-12] MEDS: MELATONIN 5 MG TABLET PO SCH (20:42)
[2021-09-12] MEDS: TraZODone HCL 100 MG TABLET PO SCH (20:42)
[2021-09-12] MEDS: -LIDODERM PATCH NOTE- MISC SCH (20:48)
[2021-09-13 06:10] VITALS: BP 118/70
[2021-09-13] MEDS: CloNIDine HCL 0.1 MG TABLET PO SCH ×4 (06:19→21:32)
[2021-09-13 06:50] VITALS: BP 115/80
[2021-09-13] MEDS: LORazepam 2 MG TABLET PO PRN ×2 (07:00→12:51)
[2021-09-13 08:00] VITALS: BP 115/88
[2021-09-13] MEDS: OMEGA-3/DHA/EPA/FISH OIL 1,000 MG CAPSULE PO SCH (08:24)
[2021-09-13] MEDS: FOLIC ACID 1 MG TABLET PO SCH (08:24)
[2021-09-13] MEDS: MULTIVITAMINS WITH MINERALS, THERAPEUTIC TABLET PO SCH (08:25)
[2021-09-13] MEDS: GABAPENTIN 400 MG CAPSULE PO SCH ×4 (08:25→20:52)
[2021-09-13] MEDS: THIAMINE 100 MG TABLET PO SCH ×2 (08:25→16:28)
[2021-09-13] MEDS: ESCITALOPRAM OXALATE 10 MG TABLET PO SCH (08:25)
[2021-09-13] MEDS: ACAMPROSATE CALCIUM 333 MG DR TABLET PO SCH ×3 (08:26→16:28)
[2021-09-13] MEDS: LIDOCAINE 5% TRANSDERMAL PATCH TD SCH ×2 (08:26→09:00)
[2021-09-13 12:51] VITALS: BP 126/79
[2021-09-13] MEDS: IBUPROFEN 600 MG TABLET PO PRN (12:51)
[2021-09-13 16:33] VITALS: BP 128/69
[2021-09-13] MEDS: TraZODone HCL 100 MG TABLET PO SCH (20:52)
[2021-09-13] MEDS: MELATONIN 5 MG TABLET PO SCH (20:52)
[2021-09-13] MEDS: -LIDODERM PATCH NOTE- MISC SCH (21:00)
[2021-09-13] MEDS: GABAPENTIN 300 MG CAPSULE PO SCH (21:00)
[2021-09-14] MEDS: CloNIDine HCL 0.1 MG TABLET PO SCH ×4 (05:58→21:05)
[2021-09-14 06:58] VITALS: BP 90/56
[2021-09-14 08:31] VITALS: BP 112/70
[2021-09-14] MEDS: LIDOCAINE 5% TRANSDERMAL PATCH TD SCH (09:00)
[2021-09-14] MEDS: ACAMPROSATE CALCIUM 333 MG DR TABLET PO SCH ×3 (09:00→16:09)
[2021-09-14] MEDS: ESCITALOPRAM OXALATE 20 MG TABLET PO SCH (09:01)
[2021-09-14] MEDS: OMEGA-3/DHA/EPA/FISH OIL 1,000 MG CAPSULE PO SCH (09:01)
[2021-09-14] MEDS: GABAPENTIN 300 MG CAPSULE PO SCH ×4 (09:01→21:04)
[2021-09-14] MEDS: FOLIC ACID 1 MG TABLET PO SCH (09:01)
[2021-09-14] MEDS: MULTIVITAMINS WITH MINERALS, THERAPEUTIC TABLET PO SCH (09:01)
[2021-09-14] MEDS: THIAMINE 100 MG TABLET PO SCH ×2 (09:02→16:09)
[2021-09-14] MEDS: LORazepam 2 MG TABLET PO PRN ×3 (09:48→23:42)
[2021-09-14 12:37] VITALS: BP 108/56
[2021-09-14 16:21] VITALS: BP 128/71
[2021-09-14] MEDS: IBUPROFEN 600 MG TABLET PO PRN (16:21)
[2021-09-14 16:41] VITALS: BP 128/71
[2021-09-14] MEDS: TraZODone HCL 100 MG TABLET PO SCH ×2 (21:00→21:04)
[2021-09-14] MEDS: MELATONIN 5 MG TABLET PO SCH ×2 (21:00→21:04)
[2021-09-14] MEDS: -LIDODERM PATCH NOTE- MISC SCH (21:00)
[2021-09-14] MEDS ORDERED: MELA5TAB40 PO (21:03)
[2021-09-14] MEDS ORDERED: OMEG-135 PO (21:03)
[2021-09-14] MEDS ORDERED: ESCI20TA87 PO (21:03)
[2021-09-14] MEDS ORDERED: GABA-1181 PO (21:03)
[2021-09-14] MEDS ORDERED: ACAM333T7 PO (21:03)
[2021-09-14] MEDS ORDERED: TRAZ-257 PO (21:03)
[2021-09-15 00:05] VITALS: BP 111/63
[2021-09-15] MEDS: CloNIDine HCL 0.1 MG TABLET PO SCH ×2 (06:06→12:41)
[2021-09-15] MEDS: MULTIVITAMINS WITH MINERALS, THERAPEUTIC TABLET PO SCH (08:27)
[2021-09-15] MEDS: GABAPENTIN 300 MG CAPSULE PO SCH ×2 (08:28→08:46)
[2021-09-15] MEDS: FOLIC ACID 1 MG TABLET PO SCH (08:28)
[2021-09-15] MEDS: ACAMPROSATE CALCIUM 333 MG DR TABLET PO SCH ×2 (08:28→12:06)
[2021-09-15] MEDS: OMEGA-3/DHA/EPA/FISH OIL 1,000 MG CAPSULE PO SCH (08:28)
[2021-09-15] MEDS: THIAMINE 100 MG TABLET PO SCH (08:29)
[2021-09-15] MEDS: LIDOCAINE 5% TRANSDERMAL PATCH TD SCH (08:31)
[2021-09-15] MEDS: ESCITALOPRAM OXALATE 20 MG TABLET PO SCH (08:32)
[2021-09-15] MEDS ORDERED: LIDO700A15 TP ×3 (10:20→10:25)
[2021-09-15] MEDS ORDERED: CLON0.1T2 PO ×2 (10:33→10:34)
[2021-09-15] MEDS: LORazepam 2 MG TABLET PO PRN (12:07)
[2021-09-15 12:41] VITALS: BP 120/70
== END 2021-09-15 13:00 | disposition home or self-care (01) | DRG 885 ==
LOC: EMS 18:53 → 3EX 23:00
PROVIDERS: ADMIT Psychiatry & Neurology Psychiatry; ATTEND Psychiatry & Neurology Psychiatry
DX: F33.3 Major depressive disorder, recurrent, severe with psychotic symptoms (principal); B19.20 Unspecified viral hepatitis C without hepatic coma; R45.851 Suicidal ideations; G89.29 Other chronic pain; F17.210 Nicotine dependence, cigarettes, uncomplicated; E78.5 Hyperlipidemia, unspecified; E73.9 Lactose intolerance, unspecified; I10 Essential (primary) hypertension; J44.9 Chronic obstructive pulmonary disease, unspecified; K74.60 Unspecified cirrhosis of liver; Z20.822 Contact with and (suspected) exposure to COVID-19; Z55.9 Problems related to education and literacy, unspecified; Z59.9 Problem related to housing and economic circumstances, unspecified; Z63.9 Problem related to primary support group, unspecified; Z65.3 Problems related to other legal circumstances; Z59.00 Homelessness unspecified
CPT/HCPCS: 80053; 80061; 81001; 82150; 83036; 84439; 84443; 85025; 86592; 99285; G0378; G0480; Q9967

== ENCOUNTER 2022-02-10 18:53 | Inpatient (IN) | payer MEDICARE, MEDICAID ==
[~2022-02-10] VITALS: Ht 152.4 cm; Wt 87.5 kg
[~2022-02-10 18:53] MED LIST changes: +ACAM333T7 PO; -CLON-592 PO; +CLON0.1T2 PO; -ESCI-8 PO; +ESCI20TA87 PO; +GABA-1181 PO; -GABA-1201 PO; -HYDR-4072 PO; -IBUP-2070 PO; +LIDO700A15 TP; +MELA5TAB40 PO; +OMEG-108 PO
[2022-02-10 19:41] LABS: BASOPHILS % (AUTO) 0.7 % (0.0-2.0); EOSINOPHILS % (AUTO) 0.6 % (1.0-6.0); HEMATOCRIT 39.2 % (36-46); HEMOGLOBIN 13.4 g/dL (12.0-16.0); LYMPHOCYTES # (AUTO) 2.9 K/uL (1.0-4.8); LYMPHOCYTES % (AUTO) 32.4 % (22.0-44.0); MEAN CORPUSCULAR HEMOGLOBIN 30.7 pg (26.0-34.0); MEAN CORPUSCULAR HGB CONC 34.2 G/dL (31.0-37.0); MEAN CORPUSCULAR VOLUME 90 fL (80-100); MONOCYTES # (AUTO) 0.6 K/uL (0.1-1.0); NEUTROPHILS # (AUTO) 5.4 K/uL (1.8-7.7); NEUTROPHILS % (AUTO) 59.3 % (40.0-70.0); PLATELET COUNT (AUTO) 252 K/uL (150-450); RED BLOOD CELL COUNT(AUTO) 4.37 MIL/uL (4.00-5.20)
[2022-02-10 19:51] LABS: ANION GAP 6 mmol/L (8-16); CARBON DIOXIDE 31 mmol/L (22-29); CHLORIDE 96 mmol/L (98-107); CREATININE 0.94 mg/dL (0.60-1.30); GLOMERULAR FILTR. RATE CALC > 60 mL/min (>60); GLUCOSE,RANDOM 97 mg/dL (70-110); POTASSIUM 4.5 mmol/L (3.5-5.1); SODIUM SERUM 133 mmol/L (136-145); UREA NITROGEN, BLOOD 13 mg/dL (7-18)
[2022-02-10 19:54] LABS: COVID AG,FIA SOURCE NASAL SWAB
[2022-02-10 19:57] LABS: ALANINE AMINOTRANSFERASE 29 U/L (12-78); ALBUMIN 4.1 g/dL (3.4-5.0); ALKALINE PHOSPHATASE 84 U/L (46-116); ASPARTATE AMINOTRANSFERASE 22 U/L (15-37); BILIRUBIN,TOTAL 0.6 mg/dL (0.1-1.0); TOTAL PROTEIN, SERUM 8.2 g/dL (6.4-8.2)
[2022-02-10] MEDS ORDERED: ACETAMINOPHEN 500 MG TABLET PO ONE (20:15)
[2022-02-10 20:38] LABS: APPEARANCE,URINE CLEAR (CLEAR); BILIRUBIN,URINE NEGATIVE (NEGATIVE); GLUCOSE, URINE (UA) NEGATIVE (NEGATIVE); KETONES,URINE NEGATIVE (NEGATIVE); LEUKOCYTE ESTERASE ,URINE NEGATIVE (NEGATIVE); NITRATE,URINE NEGATIVE (NEGATIVE); OCCULT BLOOD,URINE TRACE (NEGATIVE); PH,URINE 6.5 (5.0-8.0); PROTEIN,URINE NEGATIVE (NEGATIVE); SPECIFIC GRAVITIY, URINE 1.014 (1.003-1.030); UROBILINOGEN,URINE <=1.0 mg/dL (<=1.0)
[2022-02-10 20:45] LABS: AMPHET/METH SCREEN,URINE NEGATIVE (NEGATIVE); BARBITURATE SCREEN, URINE NEGATIVE (NEGATIVE); BENZODIAZEPINES SCREEN,URINE NEGATIVE (NEGATIVE); CANNABINOID SCREEN,URINE POSITIVE (NEGATIVE); COCAINE SCREEN,URINE NEGATIVE (NEGATIVE); METHADONE SCREEN, URINE NEGATIVE (NEGATIVE); OPIATE SCREEN,URINE POSITIVE (NEGATIVE)
[2022-02-10 20:46] LABS: PHENCYCLIDINE SCREEN,URINE NEGATIVE (NEGATIVE)
[2022-02-10 20:51] LABS: BACTERIA,URINE None Seen /HPF (None Seen); RBC,URINE 0-2 /HPF (0-2); SQUAMOUS EPITHELIAL CELL,UR Few /LPF (None Seen); WBC,URINE 0-2 /HPF (0-5)
[2022-02-11] MEDS ORDERED: ZOLPIDEM TARTRATE 10 MG TABLET PO PRN
[2022-02-11] MEDS ORDERED: HALOPERIDOL 5 MG TABLET PO PRN
[2022-02-11 04:00] VITALS: BP 101/57
[2022-02-11 09:01] VITALS: BP 141/76
[2022-02-11 09:39] VITALS: BP 141/76
[2022-02-11] MEDS: ATORVASTATIN CALCIUM 20 MG TABLET PO SCH (10:56)
[2022-02-11] MEDS: SODIUM CHLORIDE 1 GM TABLET PO SCH (10:56)
[2022-02-11] MEDS: LORazepam 2 MG TABLET PO PRN ×2 (10:58→20:35)
[2022-02-11 18:59] VITALS: BP 125/75
[2022-02-11] MEDS: IBUPROFEN 600 MG TABLET PO PRN (18:59)
[2022-02-11 19:59] VITALS: BP 122/70
[2022-02-11] MEDS: TraZODone HCL 150 MG TABLET PO SCH (21:26)
[2022-02-11] MEDS: GABAPENTIN 400 MG CAPSULE PO SCH (21:26)
[2022-02-12 09:00] VITALS: BP 124/70
[2022-02-12] MEDS: ATORVASTATIN CALCIUM 20 MG TABLET PO SCH (09:07)
[2022-02-12] MEDS: GABAPENTIN 400 MG CAPSULE PO SCH ×2 (09:07→16:16)
[2022-02-12] MEDS: SODIUM CHLORIDE 1 GM TABLET PO SCH (09:07)
[2022-02-12] MEDS: ESCITALOPRAM OXALATE 20 MG TABLET PO SCH (09:14)
[2022-02-12] MEDS: LORazepam 2 MG TABLET PO PRN ×2 (12:44→20:56)
[2022-02-12] MEDS: IBUPROFEN 600 MG TABLET PO PRN ×2 (12:45→20:54)
[2022-02-12 12:46] VITALS: BP 133/91
[2022-02-12 13:46] VITALS: BP 137/78
[2022-02-12 16:17] VITALS: BP 111/71
[2022-02-12] MEDS: TraZODone HCL 150 MG TABLET PO SCH (20:06)
[2022-02-12] MEDS: MELATONIN 5 MG TABLET PO SCH (20:06)
[2022-02-13] MEDS: GABAPENTIN 400 MG CAPSULE PO SCH ×3 (08:48→20:08)
[2022-02-13] MEDS: SODIUM CHLORIDE 1 GM TABLET PO SCH (08:49)
[2022-02-13] MEDS: ATORVASTATIN CALCIUM 20 MG TABLET PO SCH (08:49)
[2022-02-13] MEDS: ESCITALOPRAM OXALATE 20 MG TABLET PO SCH (09:03)
[2022-02-13] MEDS: LORazepam 2 MG TABLET PO PRN ×3 (11:40→20:54)
[2022-02-13] MEDS: IBUPROFEN 600 MG TABLET PO PRN (16:28)
[2022-02-13 17:04] VITALS: BP 121/73
[2022-02-13] MEDS: MELATONIN 5 MG TABLET PO SCH (20:08)
[2022-02-13] MEDS: TraZODone HCL 150 MG TABLET PO SCH (20:08)
[2022-02-14 08:00] VITALS: BP 125/77
[2022-02-14] MEDS: ATORVASTATIN CALCIUM 20 MG TABLET PO SCH (09:00)
[2022-02-14 09:14] VITALS: BP 135/75
[2022-02-14] MEDS: LORazepam 1 MG TABLET PO PRN ×2 (09:14→16:28)
[2022-02-14] MEDS: IBUPROFEN 600 MG TABLET PO PRN ×2 (09:14→16:28)
[2022-02-14] MEDS: SODIUM CHLORIDE 1 GM TABLET PO SCH (09:21)
[2022-02-14] MEDS: ESCITALOPRAM OXALATE 20 MG TABLET PO SCH (09:21)
[2022-02-14] MEDS: GABAPENTIN 400 MG CAPSULE PO SCH ×2 (13:24→20:09)
[2022-02-14 16:28] VITALS: BP 141/78
[2022-02-14 16:30] VITALS: BP 141/78
[2022-02-14] MEDS: TraZODone HCL 150 MG TABLET PO SCH (20:09)
[2022-02-14] MEDS: MELATONIN 5 MG TABLET PO SCH (20:09)
[2022-02-15 08:41] VITALS: BP 129/68
[2022-02-15] MEDS: GABAPENTIN 300 MG CAPSULE PO SCH ×4 (08:41→20:13)
[2022-02-15] MEDS: IBUPROFEN 600 MG TABLET PO PRN ×2 (08:41→16:34)
[2022-02-15] MEDS: LORazepam 1 MG TABLET PO PRN ×3 (08:41→17:58)
[2022-02-15] MEDS: ESCITALOPRAM OXALATE 20 MG TABLET PO SCH (08:49)
[2022-02-15] MEDS: ATORVASTATIN CALCIUM 20 MG TABLET PO SCH (08:51)
[2022-02-15] MEDS ORDERED: TraZODone HCL 50 MG TABLET PO SCH (09:00)
[2022-02-15] MEDS ORDERED: GABA-1181 PO (09:20)
[2022-02-15] MEDS ORDERED: ACAM333T7 PO (09:20)
[2022-02-15] MEDS ORDERED: ESCI20TA87 PO (09:20)
[2022-02-15] MEDS ORDERED: MELA5TAB40 PO (09:20)
[2022-02-15] MEDS ORDERED: TRAZ-283 PO (09:20)
[2022-02-15] MEDS: ACAMPROSATE CALCIUM 333 MG DR TABLET PO SCH ×2 (12:47→16:10)
[2022-02-15 16:34] VITALS: BP 140/90
[2022-02-15 16:42] VITALS: BP 140/90
[2022-02-15 17:34] VITALS: BP 135/84
[2022-02-15] MEDS: MELATONIN 5 MG TABLET PO SCH (20:14)
[2022-02-15] MEDS: TraZODone HCL 150 MG TABLET PO SCH (20:14)
[2022-02-16] MEDS ORDERED: LORazepam 1 MG TABLET PO PRN (01:15)
[2022-02-16] MEDS: ATORVASTATIN CALCIUM 20 MG TABLET PO SCH ×2 (08:35→08:48)
[2022-02-16] MEDS: IBUPROFEN 600 MG TABLET PO SCH ×4 (08:35→20:01)
[2022-02-16] MEDS: GABAPENTIN 300 MG CAPSULE PO SCH ×4 (08:35→20:01)
[2022-02-16] MEDS: LORazepam 0.5 MG TABLET PO SCH ×4 (08:36→20:01)
[2022-02-16] MEDS: ACAMPROSATE CALCIUM 333 MG DR TABLET PO SCH ×3 (08:36→16:22)
[2022-02-16] MEDS: ESCITALOPRAM OXALATE 20 MG TABLET PO SCH (08:45)
[2022-02-16 18:19] VITALS: BP 145/85
[2022-02-16 20:00] VITALS: BP 139/82
[2022-02-16] MEDS: MELATONIN 5 MG TABLET PO SCH (20:02)
[2022-02-16] MEDS: TraZODone HCL 150 MG TABLET PO SCH (20:28)
[2022-02-17 03:23] VITALS: BP 115/78
[2022-02-17] MEDS: IBUPROFEN 600 MG TABLET PO PRN (03:24)
[2022-02-17] MEDS: LORazepam 0.5 MG TABLET PO SCH ×2 (08:19→12:11)
[2022-02-17] MEDS: IBUPROFEN 600 MG TABLET PO SCH ×4 (08:19→20:25)
[2022-02-17] MEDS: ESCITALOPRAM OXALATE 20 MG TABLET PO SCH (08:19)
[2022-02-17] MEDS: ACAMPROSATE CALCIUM 333 MG DR TABLET PO SCH ×3 (08:21→16:09)
[2022-02-17] MEDS: GABAPENTIN 300 MG CAPSULE PO SCH ×2 (08:22→12:10)
[2022-02-17] MEDS: ATORVASTATIN CALCIUM 20 MG TABLET PO SCH (08:25)
[2022-02-17 08:46] VITALS: BP 145/86
[2022-02-17] MEDS ORDERED: LORazepam 0.5 MG TABLET PO PRN (16:03)
[2022-02-17] MEDS ORDERED: ESCI20TA87 PO (16:05)
[2022-02-17] MEDS ORDERED: MELA5TAB40 PO (16:05)
[2022-02-17] MEDS ORDERED: NALT50TA PO (16:05)
[2022-02-17] MEDS ORDERED: OMEG-108 PO (16:05)
[2022-02-17] MEDS ORDERED: TRAZ-283 PO (16:05)
[2022-02-17] MEDS ORDERED: GABA-1201 PO (16:05)
[2022-02-17] MEDS ORDERED: ACAM333T7 PO (16:05)
[2022-02-17 16:11] VITALS: BP 119/65
[2022-02-17 16:12] VITALS: BP 119/65
[2022-02-17 19:04] LABS: COVID AG,FIA SOURCE NASAL SWAB
[2022-02-17 20:15] VITALS: BP 126/81
[2022-02-17] MEDS: GABAPENTIN 400 MG CAPSULE PO SCH (20:23)
[2022-02-17] MEDS: MELATONIN 5 MG TABLET PO SCH (20:24)
[2022-02-17] MEDS ORDERED: LORazepam 1 MG TABLET PO SCH (21:00)
[2022-02-17] MEDS ORDERED: TraZODone HCL 150 MG TABLET PO SCH (21:00)
[2022-02-18] MEDS: ATORVASTATIN CALCIUM 20 MG TABLET PO SCH ×2 (08:40→09:00)
[2022-02-18] MEDS: GABAPENTIN 400 MG CAPSULE PO SCH ×2 (08:40→09:00)
[2022-02-18] MEDS: IBUPROFEN 600 MG TABLET PO SCH ×2 (08:40→12:22)
[2022-02-18] MEDS: ACAMPROSATE CALCIUM 333 MG DR TABLET PO SCH ×2 (08:41→12:22)
[2022-02-18] MEDS: ESCITALOPRAM OXALATE 20 MG TABLET PO SCH (08:52)
[2022-02-18 09:17] VITALS: BP 128/57
== END 2022-02-18 12:45 | disposition home or self-care (01) | DRG 885 ==
LOC: EMS 18:56 → B2X 02-11 00:22 → UNDOADMIN 02-11 00:22 → 3EX 02-11 03:39
PROVIDERS: ADMIT Psychiatry & Neurology Psychiatry; ATTEND Psychiatry & Neurology Psychiatry
DX: F25.9 Schizoaffective disorder, unspecified (principal); R45.851 Suicidal ideations; Z20.822 Contact with and (suspected) exposure to COVID-19; E78.5 Hyperlipidemia, unspecified; F12.90 Cannabis use, unspecified, uncomplicated; G47.30 Sleep apnea, unspecified; I10 Essential (primary) hypertension; J44.9 Chronic obstructive pulmonary disease, unspecified; Z55.9 Problems related to education and literacy, unspecified; Z59.9 Problem related to housing and economic circumstances, unspecified; Z63.9 Problem related to primary support group, unspecified; Z65.3 Problems related to other legal circumstances; Z86.19 Personal history of other infectious and parasitic diseases
CPT/HCPCS: 70450; 80053; 81001; 81003; 85025; 99285; G0378; G0480; Q9967

== ENCOUNTER 2023-10-15 13:48 | Emergency (ER) | payer MEDICARE, OTHER ==
[~2023-10-15] VITALS: Ht 154.9 cm; Wt 93.2 kg
[~2023-10-15 13:48] MED LIST changes: -CLON0.1T2 PO; -GABA-1181 PO; +GABA-1201 PO; -LIDO700A15 TP; +NALT50TA PO; -OMEG-108 PO; +OMEG-135 PO; -TRAZ-257 PO; +TRAZ-283 PO
[2023-10-15 13:58] VITALS: TEMP 97.9
[2023-10-15 14:08] LABS: COVID AG,FIA SOURCE NASAL SWAB
[2023-10-15] MEDS ORDERED: GABA-534 PO (14:08)
[2023-10-15] MEDS ORDERED: HYDR-4069 PO (14:08)
[2023-10-15] MEDS ORDERED: ESCI-8 PO (14:08)
[2023-10-15] MEDS ORDERED: TRAZ-252 PO (14:08)
[2023-10-15] MEDS ORDERED: TRAZ-257 PO (14:08)
[2023-10-15] MEDS ORDERED: DULO20CA71 PO (14:08)
[2023-10-15 14:25] LABS: BASOPHILS % (AUTO) 0.9 % (0.0-2.0); EOSINOPHILS % (AUTO) 1.5 % (1.0-6.0); HEMATOCRIT 37.7 % (36-46); HEMOGLOBIN 12.9 g/dL (12.0-16.0); LYMPHOCYTES # (AUTO) 2.6 K/uL (1.0-4.8); LYMPHOCYTES % (AUTO) 35.9 % (22.0-44.0); MEAN CORPUSCULAR HEMOGLOBIN 31.6 pg (26.0-34.0); MEAN CORPUSCULAR HGB CONC 34.3 G/dL (31.0-37.0); MEAN CORPUSCULAR VOLUME 92 fL (80-100); MONOCYTES # (AUTO) 0.6 K/uL (0.1-1.0); MONOCYTES % (AUTO) 7.9 % (2.0-9.0); NEUTROPHILS # (AUTO) 3.9 K/uL (1.8-7.7); NEUTROPHILS % (AUTO) 53.8 % (40.0-70.0); PLATELET COUNT (AUTO) 304 K/uL (150-450); RED BLOOD CELL COUNT(AUTO) 4.09 MIL/uL (4.00-5.20); RED CELL DISTRIBUTION WIDTH 12.7 % (11.5-14.5); WHITE BLOOD COUNT (AUTO) 7.2 K/uL (4.5-11.0)
[2023-10-15 14:26] LABS: APPEARANCE,URINE CLEAR (CLEAR); BILIRUBIN,URINE NEGATIVE (NEGATIVE); COLOR,URINE LIGHT YELLOW (YELLOW); GLUCOSE, URINE (UA) NEGATIVE (NEGATIVE); KETONES,URINE NEGATIVE (NEGATIVE); LEUKOCYTE ESTERASE ,URINE NEGATIVE (NEGATIVE); NITRATE,URINE NEGATIVE (NEGATIVE); OCCULT BLOOD,URINE TRACE (NEGATIVE); PH,URINE 6.5 (5.0-8.0); PROTEIN,URINE NEGATIVE (NEGATIVE); SPECIFIC GRAVITIY, URINE 1.007 (1.003-1.030); UROBILINOGEN,URINE <=1.0 mg/dL (<=1.0)
[2023-10-15 14:29] LABS: SARS-COV2 (COVID) ANTIGEN,FIA Negative (Negative)
[2023-10-15 14:30] LABS: INFLUENZA TYPE A NEGATIVE FOR TYPE A (NEGATIVE); INFLUENZA TYPE B NEGATIVE FOR TYPE B (NEGATIVE)
[2023-10-15 14:32] LABS: BACTERIA,URINE None Seen /HPF (None Seen); RBC,URINE 0-2 /HPF (0-2); SQUAMOUS EPITHELIAL CELL,UR Rare /LPF (None Seen); WBC,URINE None Seen /HPF (0-5)
[2023-10-15 14:37] LABS: ANION GAP 5 mmol/L (8-16); CALCIUM, TOTAL 9.3 mg/dL (8.8-10.5); CARBON DIOXIDE 29 mmol/L (22-29); CHLORIDE 95 mmol/L (98-107); CREATININE 0.79 mg/dL (0.60-1.30); GLOMERULAR FILTR. RATE CALC > 60 mL/min (>60); GLUCOSE,RANDOM 114 mg/dL (70-110); POTASSIUM 4.1 mmol/L (3.5-5.1); SODIUM SERUM 129 mmol/L (136-145); UREA NITROGEN, BLOOD 9 mg/dL (7-18)
[2023-10-15 14:42] LABS: ALANINE AMINOTRANSFERASE 32 U/L (12-78); ALBUMIN 3.7 g/dL (3.4-5.0); ALKALINE PHOSPHATASE 84 U/L (46-116); AMYLASE 88 U/L (25-115); ASPARTATE AMINOTRANSFERASE 21 U/L (15-37); BILIRUBIN,TOTAL 0.5 mg/dL (0.1-1.0); LIPASE 39 U/L (16-77); TOTAL PROTEIN, SERUM 7.9 g/dL (6.4-8.2)
[2023-10-15] MEDS ORDERED: SODIUM CHLORIDE 0.9% 1,000 ML IV ONE (14:45)
[2023-10-15 15:16] LABS: TROPONIN I-HIGH SENSITIVITY Less Than 4 ng/L (<51)
[2023-10-15 18:22] VITALS: BP 148/86; PULSE 98; RESP 16
[2023-10-15] MEDS ORDERED: FAMO20 PO (20:20)
== END 2023-10-15 20:26 | disposition home or self-care (01) ==
LOC: EMS 13:48
DX: E87.1 Hypo-osmolality and hyponatremia (principal); K29.70 Gastritis, unspecified, without bleeding; F41.9 Anxiety disorder, unspecified; F31.9 Bipolar disorder, unspecified; J44.9 Chronic obstructive pulmonary disease, unspecified; I10 Essential (primary) hypertension; F12.90 Cannabis use, unspecified, uncomplicated; F15.90 Other stimulant use, unspecified, uncomplicated; Z98.890 Other specified postprocedural states; Z20.822 Contact with and (suspected) exposure to COVID-19
CPT/HCPCS: 99284; 74176; 96360; 87426; 80053; 81001; 82150; 83690; 84484; 85025; 87804; 36415; 93005; J7030; C9803